=== PATIENT | male | born 1975 ===

== ENCOUNTER 2021-03-08 18:01 | Emergency (ER) | payer SELFPAY ==
[~2021-03-08] VITALS: Ht 185.4 cm; Wt 99.8 kg
[2021-03-08 19:05] LABS: BASOPHILS ABSOLUTE AUTO 0.06 K/mm3 (0.00-0.23); BASOPHILS PERCENT AUTO 1 % (0-2); EOSINOPHILS ABSOLUTE AUTO 0.18 K/mm3 (0.00-0.68); EOSINOPHILS PERCENT AUTO 3 % (0-6); Hematocrit 54.8 % (37.0-53.0); Hemoglobin 19.3 g/dL (13.5-17.5); IMMATURE GRAN ABSOLUTE AUTO 0.05 K/mm3 (0.00-0.10); IMMATURE GRAN PERCENT AUTO 1 % (0-1); LYMPHOCYTES ABSOLUTE AUTO 3.18 K/mm3 (0.84-5.20); LYMPHOCYTES PERCENT AUTO 45 % (21-46); MONOCYTES ABSOLUTE AUTO 0.71 K/mm3 (0.16-1.47); MONOCYTES PERCENT AUTO 10 % (4-13); Mean Corpuscular HGB Conc 35.2 g/dL (31.5-36.5); Mean Corpuscular Volume 94 fL (80-100); Mean Platelet Volume 11.9 fL (9.1-12.4); NEUTROPHILS ABSOLUTE AUTO 2.84 K/mm3 (1.96-9.15); NEUTROPHILS PERCENT AUTO 40 % (41-73); NRBC ABSOLUTE 0.02 K/mm3 (0.00-0.02); NRBC Auto 0.3 /100 WBC (0.0-0.2); Platelet Count 237 K/mm3 (150-400); RDW Coefficient Variation 15.7 % (11.7-14.2); Red Blood Cell Count 5.84 M/mm3 (4.30-5.90); White Blood Cell Count 7.02 K/mm3 (4.00-11.30)
[2021-03-08 19:22] LABS: Alanine Aminotransfer (ALT/SGP 101 U/L (12-78); Albumin, Blood 3.3 g/dL (3.4-5.0); Albumin/Globulin Ratio 0.8 (0.8-1.8); Alk Phos 162 U/L (50-136); Anion Gap 6 mmol/L (6-16); Aspartate Aminotrans (AST/SGOT 70 U/L (12-37); Bilirubin, Total 0.6 mg/dL (0.1-1.0); Blood Urea Nitrogen 3 mg/dL (8-24); Bun/Creatinine Ratio 3.9 (12.0-20.0); CO2, Blood 30 mmol/L (21-32); Calcium, Blood 9.2 mg/dL (8.5-10.1); Chloride, Blood 100 mmol/L (98-108); Creatinine, Blood 0.78 mg/dL (0.60-1.20); Globulin, Blood 4.2 g/dL (2.2-4.0); Glomerular Filtration Rate >60 (60-); Glucose, Blood 177 mg/dL (70-99); Potassium, Blood 3.8 mmol/L (3.5-5.5); Sodium, Blood 136 mmol/L (136-145); Total Protein, Blood 7.5 g/dL (6.4-8.2)
[2021-03-08] MEDS ORDERED: ONDA4ODT MM (21:08)
== END 2021-03-08 21:18 | disposition home or self-care (01) ==
LOC: ER 18:01
PROVIDERS: Physician Assistant
DX: U07.1 COVID-19 (principal)
CPT/HCPCS: 80053; 83690; 85025; 96374; 99284; J2405; J7030

== ENCOUNTER 2021-05-07 10:17 | Emergency (ER) | payer SELFPAY ==
[~2021-05-07] VITALS: Ht 185.4 cm; Wt 99.8 kg
[~2021-05-07 10:17] MED LIST: ONDA4ODT MM
[2021-05-07 11:32] LABS: BASOPHILS ABSOLUTE AUTO 0.07 K/mm3 (0.00-0.23); BASOPHILS PERCENT AUTO 1 % (0-2); EOSINOPHILS ABSOLUTE AUTO 0.15 K/mm3 (0.00-0.68); EOSINOPHILS PERCENT AUTO 1 % (0-6); Hemoglobin 19.4 g/dL (13.5-17.5); IMMATURE GRAN ABSOLUTE AUTO 0.03 K/mm3 (0.00-0.10); IMMATURE GRAN PERCENT AUTO 0 % (0-1); LYMPHOCYTES PERCENT AUTO 24 % (21-46); MONOCYTES ABSOLUTE AUTO 0.79 K/mm3 (0.16-1.47); MONOCYTES PERCENT AUTO 7 % (4-13); Mean Corpuscular HGB 32.8 pg (26.0-34.0); Mean Corpuscular HGB Conc 34.6 g/dL (31.5-36.5); Mean Corpuscular Volume 95 fL (80-100); Mean Platelet Volume 10.8 fL (9.1-12.4); NEUTROPHILS ABSOLUTE AUTO 7.93 K/mm3 (1.96-9.15); NEUTROPHILS PERCENT AUTO 67 % (41-73); NRBC ABSOLUTE 0.02 K/mm3 (0.00-0.02); NRBC Auto 0.2 /100 WBC (0.0-0.2); Platelet Count 199 K/mm3 (150-400); RDW Coefficient Variation 14.9 % (11.7-14.2); RDW Standard Deviation 49.2 fL (35.1-46.3); Red Blood Cell Count 5.92 M/mm3 (4.30-5.90); White Blood Cell Count 11.77 K/mm3 (4.00-11.30)
[2021-05-07 12:00] LABS: Alanine Aminotransfer (ALT/SGP 41 U/L (12-78); Albumin/Globulin Ratio 0.7 (0.8-1.8); Alk Phos 206 U/L (50-136); Anion Gap 10 mmol/L (6-16); Aspartate Aminotrans (AST/SGOT 62 U/L (12-37); Bilirubin, Total 2.2 mg/dL (0.1-1.0); Blood Urea Nitrogen 7 mg/dL (8-24); Bun/Creatinine Ratio 7.2 (12.0-20.0); CO2, Blood 30 mmol/L (21-32); Calcium, Blood 9.1 mg/dL (8.5-10.1); Chloride, Blood 91 mmol/L (98-108); Creatinine, Blood 0.97 mg/dL (0.60-1.20); Globulin, Blood 4.1 g/dL (2.2-4.0); Glomerular Filtration Rate >60 (60-); Glucose, Blood 136 mg/dL (70-99); Potassium, Blood 3.4 mmol/L (3.5-5.5); Sodium, Blood 131 mmol/L (136-145); Total Protein, Blood 7.1 g/dL (6.4-8.2)
[2021-05-07 13:04] LABS: International Normalized Ratio 1.19; Prothrombin Time Results 12.4 Sec (9.7-11.5)
[2021-05-07] MEDS ORDERED: ONDA4ODT MM (14:18)
[2021-05-07] MEDS ORDERED: ALMACONE SUSPE355 ML PO (14:18)
[2021-05-07] MEDS ORDERED: OMEP20ER PO (14:18)
== END 2021-05-07 14:29 | disposition home or self-care (01) ==
LOC: ER 10:17
PROVIDERS: Physician Assistant; Student in an Organized Health Care Education/Training Program
DX: E87.6 Hypokalemia (principal); K29.20 Alcoholic gastritis without bleeding; F10.10 Alcohol abuse, uncomplicated; F17.210 Nicotine dependence, cigarettes, uncomplicated
CPT/HCPCS: 36415; 71045; 80053; 83690; 83735; 84484; 85025; 85610; 85730; 93005; 93010; 96374; 96375; 99284-25; A9270; C9113; J2765; J7120

== ENCOUNTER 2021-06-09 11:08 | Emergency (ER) | payer SELFPAY ==
[~2021-06-09] VITALS: Ht 185.4 cm; Wt 95.2 kg
[~2021-06-09 11:08] MED LIST changes: +ALMACONE SUSPE355 ML PO; +OMEP20ER PO
[2021-06-09 11:43] LABS: BASOPHILS ABSOLUTE AUTO 0.11 K/mm3 (0.00-0.23); BASOPHILS PERCENT AUTO 1 % (0-2); EOSINOPHILS ABSOLUTE AUTO 0.12 K/mm3 (0.00-0.68); EOSINOPHILS PERCENT AUTO 1 % (0-6); Hemoglobin 20.1 g/dL (13.5-17.5); IMMATURE GRAN ABSOLUTE AUTO 0.02 K/mm3 (0.00-0.10); IMMATURE GRAN PERCENT AUTO 0 % (0-1); LYMPHOCYTES ABSOLUTE AUTO 3.51 K/mm3 (0.84-5.20); LYMPHOCYTES PERCENT AUTO 42 % (21-46); MONOCYTES ABSOLUTE AUTO 0.82 K/mm3 (0.16-1.47); MONOCYTES PERCENT AUTO 10 % (4-13); Mean Corpuscular HGB 33.6 pg (26.0-34.0); Mean Corpuscular HGB Conc 35.1 g/dL (31.5-36.5); Mean Corpuscular Volume 96 fL (80-100); Mean Platelet Volume 10.9 fL (9.1-12.4); NEUTROPHILS ABSOLUTE AUTO 3.85 K/mm3 (1.96-9.15); NEUTROPHILS PERCENT AUTO 46 % (41-73); Platelet Count 241 K/mm3 (150-400); RDW Standard Deviation 54.2 fL (35.1-46.3); Red Blood Cell Count 5.98 M/mm3 (4.30-5.90); White Blood Cell Count 8.43 K/mm3 (4.00-11.30)
[2021-06-09 11:49] LABS: Hematocrit 57.2 % (37.0-53.0)
[2021-06-09 12:14] LABS: Alanine Aminotransfer (ALT/SGP 60 U/L (12-78); Albumin, Blood 3.4 g/dL (3.4-5.0); Albumin/Globulin Ratio 0.9 (0.8-1.8); Alk Phos 173 U/L (50-136); Anion Gap 11 mmol/L (6-16); Aspartate Aminotrans (AST/SGOT 50 U/L (12-37); Blood Urea Nitrogen 3 mg/dL (8-24); Bun/Creatinine Ratio 3.9 (12.0-20.0); CO2, Blood 28 mmol/L (21-32); Chloride, Blood 96 mmol/L (98-108); Creatinine, Blood 0.77 mg/dL (0.60-1.20); Globulin, Blood 3.7 g/dL (2.2-4.0); Glomerular Filtration Rate >60 (60-); Glucose, Blood 202 mg/dL (70-99); Potassium, Blood 3.3 mmol/L (3.5-5.5); Sodium, Blood 135 mmol/L (136-145); Total Protein, Blood 7.1 g/dL (6.4-8.2)
[2021-06-09 12:46] LABS: Ethanol (Alcohol), Blood, Med 169 mg/dL
[2021-06-09] MEDS ORDERED: CHLO25 PO (13:27)
== END 2021-06-09 13:44 | disposition home or self-care (01) ==
LOC: ER 11:08
PROVIDERS: Emergency Medicine; Physician Assistant
DX: F10.239 Alcohol dependence with withdrawal, unspecified (principal); F17.210 Nicotine dependence, cigarettes, uncomplicated
CPT/HCPCS: 80053; 83690; 84484; 85025; 86850; 86900; 86901; 93005; 93010; 99283-25; G0480; J7030

== ENCOUNTER 2021-09-04 18:03 | Emergency (ER) | payer SELFPAY ==
[~2021-09-04] VITALS: Ht 185.4 cm; Wt 95.2 kg
[~2021-09-04 18:03] MED LIST changes: +CHLO25 PO
[2021-09-04 19:26] LABS: BASOPHILS ABSOLUTE AUTO 0.11 K/mm3 (0.00-0.23); BASOPHILS PERCENT AUTO 1 % (0-2); EOSINOPHILS ABSOLUTE AUTO 0.08 K/mm3 (0.00-0.68); EOSINOPHILS PERCENT AUTO 1 % (0-6); Hemoglobin 20.3 g/dL (13.5-17.5); IMMATURE GRAN ABSOLUTE AUTO 0.05 K/mm3 (0.00-0.10); IMMATURE GRAN PERCENT AUTO 0 % (0-1); LYMPHOCYTES ABSOLUTE AUTO 3.68 K/mm3 (0.84-5.20); LYMPHOCYTES PERCENT AUTO 29 % (21-46); MONOCYTES ABSOLUTE AUTO 1.27 K/mm3 (0.16-1.47); MONOCYTES PERCENT AUTO 10 % (4-13); Mean Corpuscular HGB 32.6 pg (26.0-34.0); Mean Corpuscular HGB Conc 34.9 g/dL (31.5-36.5); Mean Corpuscular Volume 93 fL (80-100); Mean Platelet Volume 11.3 fL (9.1-12.4); NEUTROPHILS ABSOLUTE AUTO 7.53 K/mm3 (1.96-9.15); NEUTROPHILS PERCENT AUTO 59 % (41-73); NRBC ABSOLUTE 0.02 K/mm3 (0.00-0.02); NRBC Auto 0.2 /100 WBC (0.0-0.2); Platelet Count 350 K/mm3 (150-400); RDW Coefficient Variation 17.4 % (11.7-14.2); RDW Standard Deviation 52.8 fL (35.1-46.3); Red Blood Cell Count 6.23 M/mm3 (4.30-5.90); White Blood Cell Count 12.72 K/mm3 (4.00-11.30)
[2021-09-04 19:36] LABS: Hematocrit 58.1 % (37.0-53.0)
[2021-09-04 19:49] LABS: Albumin, Blood 3.5 g/dL (3.4-5.0); Albumin/Globulin Ratio 0.9 (0.8-1.8); Bun/Creatinine Ratio 6.2 (12.0-20.0); Calcium, Blood 9.2 mg/dL (8.5-10.1); Creatinine, Blood 0.8 mg/dL (0.60-1.20); Magnesium, Blood 1.7 mg/dL (1.6-2.4); Potassium, Blood 3.7 mmol/L (3.5-5.5); Total Protein, Blood 7.5 g/dL (6.4-8.2)
[2021-09-04] MEDS ORDERED: ONDA4ODT MM (22:26)
[2021-09-04] MEDS ORDERED: CHLO25 PO (22:26)
== END 2021-09-04 22:44 | disposition home or self-care (01) ==
LOC: ER 18:03
PROVIDERS: Physician Assistant
DX: F10.129 Alcohol abuse with intoxication, unspecified (principal); E86.0 Dehydration; F17.210 Nicotine dependence, cigarettes, uncomplicated; Y90.7 Blood alcohol level of 200-239 mg/100 ml; Z79.899 Other long term (current) drug therapy
CPT/HCPCS: 36415; 80053; 83735; 85025; 96374; 96376; 99283-25; A9270; G0480; J2405; J7030

== ENCOUNTER 2021-12-24 03:51 | Inpatient (IN) | payer OTHER ==
[~2021-12-24] VITALS: Ht 185.4 cm; Wt 116.0 kg
[2021-12-24 05:29] LABS: Albumin, Blood 2.1 g/dL (3.4-5.0); Albumin/Globulin Ratio 0.6 (0.8-1.8); Bilirubin, Total 9.1 mg/dL (0.1-1.0); Bun/Creatinine Ratio 23.7 (12.0-20.0); Calcium, Blood 9.2 mg/dL (8.5-10.1); Creatinine, Blood 0.97 mg/dL (0.60-1.20); Globulin, Blood 3.4 g/dL (2.2-4.0); Potassium, Blood 3.3 mmol/L (3.5-5.5); Total Protein, Blood 5.5 g/dL (6.4-8.2)
[2021-12-24 06:00] LABS: Bicarbonate Venous 36.9 mmol/L (24.0-30.0); PCO2 Venous 43.5 mmHg (38-42); pH Blood Venous 7.54 (7.34-7.37)
[2021-12-24 06:01] LABS: Base Excess Venous 14.8 mmol/L
[2021-12-24 06:01] LABS: BASOPHILS ABSOLUTE AUTO 0.05 K/mm3 (0.00-0.23); BASOPHILS PERCENT AUTO 1 % (0-2); EOSINOPHILS ABSOLUTE AUTO 0.13 K/mm3 (0.00-0.68); EOSINOPHILS PERCENT AUTO 2 % (0-6); Hemoglobin 16.8 g/dL (13.5-17.5); IMMATURE GRAN PERCENT AUTO 1 % (0-1); LYMPHOCYTES ABSOLUTE AUTO 1.66 K/mm3 (0.84-5.20); LYMPHOCYTES PERCENT AUTO 22 % (21-46); MONOCYTES ABSOLUTE AUTO 0.59 K/mm3 (0.16-1.47); MONOCYTES PERCENT AUTO 8 % (4-13); Mean Corpuscular HGB 34.7 pg (26.0-34.0); Mean Corpuscular Volume 93 fL (80-100); NEUTROPHILS ABSOLUTE AUTO 5.05 K/mm3 (1.96-9.15); NEUTROPHILS PERCENT AUTO 67 % (41-73); NRBC ABSOLUTE 0.03 K/mm3 (0.00-0.02); NRBC Auto 0.4 /100 WBC (0.0-0.2); RDW Coefficient Variation 16.1 % (11.7-14.2); RDW Standard Deviation 53.5 fL (35.1-46.3); Red Blood Cell Count 4.84 M/mm3 (4.30-5.90); White Blood Cell Count 7.58 K/mm3 (4.00-11.30)
[2021-12-24 06:11] LABS: Mean Corpuscular HGB Conc 37.3 g/dL (31.5-36.5)
--- NOTE | 2021-12-24 09:00 | NUR ---
ADMIT PT ARRIVED TO ICU ROOM 12 VIA ER BED AT 0845. PT IS AWAKE, AGITATED, AND RESTLESS. PT TRANSFERED TO ICU BED. SBW RESTRAINTS IN PLACE. PT IS CONFUSED AND SPEECH IS SLURRED AND NONSENSICAL. KCL IV INFUSING. VITAL SIGNS STABLE. WILL CONTINUE TO MONITOR.
--- NOTE | 2021-12-24 17:46 | NUR ---
SHIFT SUMMARY PT REMAINS CONFUSED AND WITH PERIODS OF RESTLESSNESS THIS SHIFT. PT IS NOT REDIRECTABLE. PT WITH HALLUCINATIONS AND NONSENSICAL SPEECH. PT WITH SBW RESTRAINTS IN PLACE. PT ATTEMPTS TO SIT UP IN BED AND PULL AT LINES/TUBES. PT MED WITH ATIVAN PRN PER EMAR AND PRECEDEX INFUSING AT 0.5 MCG/KG/HR. NS INFUSING AT 100 ML/HR. PG TO APOLONIA C/D/I. CONDOM CATH IN PLACE WITH DARK YELLOW URINE OUTPUT NOTED. RECTAL TUBE IN PLACE, PT WITH LARGE VOLUME OF BROWN LIQUID STOOL NOTED S/P LACTULOSE ENEMAS. NO FAMILY AT BEDSIDE. VITAL SIGNS STABLE, PT ON 4L O2 NC. WILL CONTINUE TO MONITOR AND REPORT OFF TO ONCOMING RN.
--- NOTE | 2021-12-24 19:13 | NUR ---
assumed care of pt @ 1900 report given by debbi nunes. v/s wnl precidex drip is at.5 pt seems comfortable. will assess ciwa amd medicate as needed. pt is in restraints for safty and agitation.
[2021-12-25 03:56] LABS: Source, Urine Foley catheter
[2021-12-25 03:59] LABS: Blood, Urine 5+ (Neg); Glucose Qualitative, Urine Neg (Neg); Ketones, Urine 3+ (Neg); Leukocyte Esterase, Urine 1+ (Neg); Nitrite, Urine Pos (Neg); Protein, Urine 3+ (Neg); Urobilinogen, Urine 3+ (Normal)
[2021-12-25 04:10] LABS: Appearance, Urine Hazy (Clear); Bilirubin, Urine 3+ (Neg); Color, Urine Amber (P-Yellow)
[2021-12-25 04:11] LABS: Bacteria Few /hpf; Squamous Epithelial Cells Few /hpf (Few)
[2021-12-25 04:26] LABS: Bun/Creatinine Ratio 24.7 (12.0-20.0); Creatinine, Blood 0.81 mg/dL (0.60-1.20)
--- NOTE | 2021-12-25 06:16 | NUR ---
END OF SHIFT SUMMARY PT IN FOR ETOH WITHDRAW PT HAS CONSISTANLY SCORRED 26 ON CIWA. HIS PRECIDEX DRIP IS RUNNING AT .7 AND HAS NEEDED A SIGNIFICANT AMOUNT OF ATIVAN FOR W/D SYMTOMS. PT GOES FROM SOMMULANT TO SHOUTING PROFANITIES. PT WAS AT ONE TIME ABLE TO TELL ME NAME YEAR AND PRESIDENT BUT MOSTLY MUMBLING. PT IS NOT AWARE OF WHERE HES IS AT AND WHY HE IS HERE. V/S HAVE BEEN STABLE WILL CONTIMNUE TO MONITER AND REPPORT TO ONCOMING RN
--- NOTE | 2021-12-25 12:07 | NUR ---
BREEZY HAS BEEN SLEEPING FOR THE MAJORITY OF THE DAY, THE PRECEDEX STARTED AT 0.7MCG/KG THIS SHIFT BUT DECREASED TO 0.5MCG/KG FOR CONTINUED SOMNOLENCE. WHEN HE WOULD AWAKE HE WAS UNABLE TO ANSWER QUESTIONS ABOUT WHERE HE WAS AND WHY HE WAS HERE. HE WOULD GET UPSET AND YELL AND CURSE AND FALL BACK TO SLEEP. HE WAS MEDICATED WITH ATIVAN 2MG FOR INCREASED AGITATION JUST AFTER 1100. HE WAS RE- POSITIONED AND FELL BACK TO SLEEP. ORAL CARE BEING DONE Q2-3 HRS. CATHETER CONTINUES TO RETURN DARK CLAUDETTE, RECTAL TUBE WITH BROWN LIQUID RETURN.
--- NOTE | 2021-12-25 16:49 | NUR ---
PT WAKES UP OCCASIONALLY AND ASKS FOR WATER, HE IS ABLE TO TAKE IN THE STRAW AND SUCK OUT THE WATER. HE IS SATISFIED WITH THIS AND FALLS BACK TO SLEEP. HIS MOTHER HAS CALLED TO CHECK ON HIM.
--- NOTE | 2021-12-25 18:20 | NUR ---
BREEZY HAS BEEN SLEEPING MOST OF THE DAY, HE WILL OCC SHOUT OUT RANDOM WORDS OR PHRASES. WHEN QUESTIONED, THE MAJORITY OF THE TIME HE IS UNABLE TO ANSWER, ONCE TODAY HE WAS ABLE TO SAY HE WAS IN [place] AND THE DATE IS DECEMBER 25, 2021, PRESIDENT CHELSEA. THE OTHER QUESTIONS ARE NOT ANSWERED CORRECTLY, OR HE BECOMES AGITATED. HE CONTINUES ON THE PRECEDEX AT 0.5MCG/KG, NS @ 100ML/HR, LR @ 125ML/HR, GROSS TO GRAVITY DRAINAGE RETURNS YELLOW BILE COLOR, RECTAL TUBE RETURNS LIQUID BROWN. OXYGEN VIA NC @ 4L WITH SATS >90%. SCD'S IN PLACE. CIWA'S HAVE RANGED FROM 10-20. WILL CONTINUE TO MONITOR AND TREAT.
--- NOTE | 2021-12-25 21:30 | NUR ---
ASSUMPTION OF CARE/ASSESSMENT: ASSUMED CARE OF PT AT 1900. PT IS DROUSY BUT AROUSABLE. WHEN WOKEN UP, PT DISPLAYS AGGITATION AND ANGRY TOWARDS RESTRAINTS AND NOT BEING ABLE TO EAT. PT IS REDIRECTABLE AND CONTINUES TO COOPERATE WITH CARE. PT IS A&O X 3; PT CONFUSED ON EVENTS THAT LED HIM HERE AND AT TIMES THINKS HE IS STILL AT [facility]. PT ABLE TO CONVERSE SLOWLY BUT WORDS ARE SLIGHTLY SLURRED. PT FALLS BACK TO SLEEP EASILY AT THIS TIME. PT 1999 CIWA SCORE 9, MEDICATED WITH 2 MG ATIVAN PER EMAR. PT LUNG SOUNDS ARE CLEAR WITH EXPIRATORY WHEEZES NOTED; BREATHS LOOK SHALLOW AND TACHYPNIC NOTED, RR 35-45 AND SPO2 92<. PT WEARING NC @ 4 L. PT HR IN THE 80'S, SBP 100'S, AND MAP 65<. PT ABD MODERATELY DISTENDED WITH SOME PAIN RELATED TO PALPATION; NO C/O OF N/V AT THIS TIME. RECTAL TUBE IN PLACE THAT IS DRAINING TO GRAVITY; LIQUID, LIGHT BROWN OUTPUT. WARM EXTREMITIES WITH PPP X 4. PT TOLERATING PO LIQUIDS AT THIS TIME. WILL CONTINUE TO MONITOR.
[2021-12-26 04:42] LABS: Bun/Creatinine Ratio 21.5 (12.0-20.0); Calcium, Blood 7.7 mg/dL (8.5-10.1); Creatinine, Blood 0.79 mg/dL (0.60-1.20); Magnesium, Blood 1.8 mg/dL (1.6-2.4); Potassium, Blood 3.6 mmol/L (3.5-5.5)
--- NOTE | 2021-12-26 06:37 | NUR ---
SHIFT SUMMARY: NO ACUTE CHANGES THIS SHIFT. PT REMAINS AGGITATED THROUGHOUT THE SHIFT BUT IS REDIRECTABLE AND COOPERATES WIHT CARE. THE PT IS ABLE TO STAY AWAKE MORE DURING ASSESSMENTS. PT TOLERATES LIQUIDS AND DIET TRIALED WITH JELLO AND PT TOLERATED WELL. PT HAD A LOT OF PO INTAKE THIS SHIFT. PT KEEPS VOICING DESIRE TO LEAVE THE HOSPITAL AND GO HOME, BUT NO REAL ATTEMPTS TO GET OUT OF BED WERE MADE. RESTRAINTS WERE TAKEN OFF AFTER MENTATION IMPROVED AND THE PT WAS ABLE TO NOT PULL ON LINES. PT PUT ON CENTRAL MONITORING FOR ADDITIONAL OBSERVATION WHEN RN NOT IN ROOM. PT TOSSED AND TURNED ALL NIGHT; PT ATTEMPTED TO LAY ON STOMACH AND PULLED OUT POWERGLIDE. A PRESSURE DRESSING WAS PUT IN PLACE AND A NEW IV WAS STARTED IN THE LAC. PT RECIEVED A ONE TIME DOSE OF 10 MG ZYPREXA TO CALM PT DURING IV INSERTION. PT HAD GOOD URINE OUTPUT THIS SHIFT; URINE TEA COLORED AND CLOUDY. PT ON NC @ 5 L TO MAINTAING SPO2 92<; PT HAS EXPIRATORY WHEEZES HEARD WITHOUT STETHESCOPE. RECTAL REMAINS IN PLACE AND PATENT; LOTS OF GAS IN BAG. PRECEDEX IS ON SB; PT RECIEVED A TOTAL OF 10 MG OF ATIVAN THROUGHOUT THE SHIFT. WILL CONTINUE TO MONITOR UNTIL ONCOMING RN ARRIVES.
--- NOTE | 2021-12-26 09:32 | NUR ---
BREEZY IS AWAKE AND CONVERSANT, HE IS NOT ORIENTED TO PLACE OR WHY HE IS HERE. HE IS A BIT AGITATED AND IS WANTING TO GO HOME, HE WANTS OUT OF BED AND HE WANTS TO TALK TO HIS FAMILY. HE IS BEING COOPERATIVE IN THAT HE IS NOT PULLING AND TUGGING AT THE LINES/CORDS/TUBES, BUT IS UNABLE TO UNDERSTAND WHY HE IS HERE AND WHAT HE IS HERE FOR. RECTAL TUBE REMOVED WITHOUT INCIDENT, IN TO ROUND ON PATIENT, NO NEW ORDERS. PIV STARTED IN LEFT HAND, PATIENT COOPERA- TIVE WITH THAT. SCD'S IN PLACE. ORAL LIBRIUM GIVEN.
--- NOTE | 2021-12-26 11:56 | NUR ---
BREEZY IS UP TO THE CHAIR BESIDE THE BED, HE IS VERY SHORT OF BREATH, BREATHING AT THE RATE OF HI 20'S. SATS 92% ON 4L. HE TRANSFERRED FAIRLY WELL, DID A "PLOP" INTO THE CHAIR. HE IS ABLE TO FEED HIMSELF AND IS TAKING IN HIS LUNCH TRAY WITHOUT INCIDENT. HE RECALLED THAT THE RECTAL TUBE HAS BEEN REMOVED, ASKED ABOUT THE GROSS CATHETER. DID NOT REMEMBER THAT HE HAD HAD A BED BATH.
--- NOTE | 2021-12-26 12:41 | NUR ---
AFTER LUNCH BREEZY WANTED TO RETURN TO "HIS COUCH". HE TRANSFERRED FAIRLY WELL. HE GETS FRUSTRATED AT PEOPLE HELPING HIM BUT IS UNABLE TO NAVIGATE THE WAY BACK WITHOUT ASSISTANCE. HE CUDDLED IN AND WENT TO SLEEP.
--- NOTE | 2021-12-26 15:26 | NUR ---
Spiritual Care: Nurse request Pt. is awake in bed when I enter the room. After introductions the Pt. began to verbally share his experience. Rapport is established. Pt. verbalized gratitude for the care he is receiving. Pt. verbalized gratitude for the spiritual care visit.
--- NOTE | 2021-12-26 18:52 | NUR ---
BREEZY HAS BEEN MORE ALERT AND COOPERATIVE THIS SHIFT. HE HAS BEEN ADAMANT THAT HE WANTS TO GO HOME, HE UNDERSTANDS THAT HIS THINGS ARE AT [facility], HE ASKED THAT WE CALL AND ASK FOR THEM. EFFORTS MADE TO GET [facility], THEY STATE THAT HIS THINGS WILL BE BROUGHT TO HIM TOMORROW, THAT TOMORROW IS HIS OFFICIAL DISCHARGE DAY FROM [facility], THEY ALSO DO NOT HAVE A RESIDENTIAL SPOT AVAILABLE FOR HIM. HE IS TRYING TO SETTLE IN FOR THE NIGHT. WILL CONTINUE TO MONITOR AND TREAT, REPORTING OFF TO NEXT SHIFT WHEN ABLE.
--- NOTE | 2021-12-27 06:21 | NUR ---
END OF SHIFT REPORT NEURO: PT REMAINED A&OX3-4 THROUGHOUT EVENING. NO COMPLAINTS OF NUMBNESS/TINGLING, VISION CHANGES OR HEADACHE. CONFUSION INCREASED OVERNIGHT, VISUAL HALLUCINATIONS OF FAMILY IN ROOM. REDIRECTABLE BUT VERY IMPULSIVE. WOULD CONSTANTLY REMOVE MEDICAL EQUIPMENT. PULLED OUT IV AT END OF SHIFT. NEURO: A&OX3-4 FOR ENTIRE EVEING. NO COMPLAINTS OF NUMBNESS/TINGLING, HEADACHE OR VISION CHANGES. CONFUSION STEADILY INCREASED THROUGHOUT EVENING, INTERMITTENT VISUAL HALLUCINATIONS PRESENT. PSYCHOSOCIAL: REDIRECTABLE BUT VERY IMPULSIVE. CONTINUALLY REMOVING MEDICAL EQUIPMENT AND PULLED OUT AN IV. 125 MG LIBRIUM AND 5 MG ATIVAN GIVEN OVERNIGHT CARDIAC: NO COMPLAINTS OF CHEST PAIN. NSR. NORMOTENSIVE. RESPIRATORY: RA TO 3L NC. CLEAR BREATH SOUNDS INTERMITTENT EXPIRATORY WHEEZING APPRECIATED. GI/: GROSS CATH IN PLACE. PUTTING OUT ADEQUATE TEA COLORED URINE. MULTIPLE SMALL FORMED AND MUCOUS LIKE STOOLS. MUSCULOSKELETAL: FULL STRENGTH AND SENSATION IN ALL FOUR EXTREMITIES. UNSTABEL GAIT, REQUIRES ONES ASSIST WITH WALKER TO BEDSIDE COMMODE. INTEGUMENTARY: FLUSHED, INTACT. LINES: NS @ 100ML/HR
--- NOTE | 2021-12-27 19:03 | NUR ---
summary neuro: sedated with 0.6 precedex gtt, pt otherwise oriented x2-3 Lungs; wnl cardiac: wnl gi: loose bm gu: [facility] in place CIWA as needed
--- NOTE | 2021-12-27 19:18 | NUR ---
ASSUME CARE PT A&OX3, NOT ORIENTED TO PLACE. AWAKENS TO VERBAL STIMULI AND FOLLOWS COMMANDS. JOSE LUIS VEST AND WRIST RESTRAINTS IN PLACE. SKIN INTACT. GROSS CATH NOTED. PRECEDEX AT 0.6 MCG/KG/HR. NS AT 100.
[2021-12-28 04:05] LABS: Albumin, Blood 1.7 g/dL (3.4-5.0); Albumin/Globulin Ratio 0.5 (0.8-1.8); Bilirubin, Direct 10.7 mg/dL (0.0-0.3); Bilirubin, Indirect 2.3 mg/dL (0.1-0.7); Creatinine, Blood 0.62 mg/dL (0.60-1.20); Globulin, Blood 3.3 g/dL (2.2-4.0); Magnesium, Blood 1.9 mg/dL (1.6-2.4); Potassium, Blood 3.9 mmol/L (3.5-5.5)
--- NOTE | 2021-12-28 05:58 | NUR ---
END OF SHIFT SUMMARY PRECEDEX 0.6 MCG/KG/HR. NS 100 ML/HR NEURO: AWAKENS TO VERBAL STIMULI AND ATTENDS TO QUESTIONING, FOLLOWS COMMANDS. INTERMITTENT IRRITABILITY AND ANXIETY. FULL STRENGTH AND SENSATION IN ALL FOUR EXTREMITIES. NO COMPLAINTS OF HEADACHE, VISION CHANGES OR NUMBNESS/TINGLING. CARDIAC: NSR. NORMOTENSIVE. STRONG PULSES. RESPIRATORY: TACHYPNEIC. DYSPNEA AT REST. EXPIRATORY WHEEZES APPRECIATED BILATERALLY. COARSE BILATERAL LOWER LOBES. GI: NO BOWEL MOVEMENT OVERNIGHT. HYPERACTIVE BOWEL SOUNDS. ABDOMEN DISTENDED AND FIRM, NONTENDER. : DARK TEA COLORED URINE. OUTPUT 30-60 ML/HR. GROSS IN PLACE. MUSCULOSKELETAL: FULL STRENGTH AND SENSATION ALL FOUR LIMBS. JOSE LUIS VEST AND SOFT WRIST RESTRAINTS BILATERALLY. INTEGUMENTARY: DIAPHORETIC. LIPOMA TO RIGHT PARIETAL REGION OF HEAD.
--- NOTE | 2021-12-28 08:00 | NUR ---
PT VERY CONFUSED AND AGITATED. PT YELLING FOR "WATER!" PT ASKING WHY HE IS BEING HELD HERE AGAINST HIS WILL AND DEMANDING A "ROADING ENGINEER." PT ORIENTED TO SELF. CIWA 24-MED WITH LIBRIUM 50 MG PO X 1-SEE EMAR. PRECEDEX DRIP CONTINUES @ 0.6 MCG/KG/MIN. ECG SHOWS SR WITH RATE 70-90'S. GENERALIZED EDEMA NOTED. DP/PT PULSES PALPABLE. LUNGS TIGHT WITH SCATTERED WHEEZES THROUGH OUT. SATS>90% ON 4 LITERS NASAL CANULA. RESP 28-36. RESPIRATIONS AUDIBLY MOIST. OCCASIONAL, MOIST, NONPRODUCTIVE COUGH. ASSISTED PT WITH BREAKFAST TRAY-ASPIRATION PRECAUTIONS IN PLACE. ABDOMEN VERY DISTENDED AND FIRM WITH BT'S X 4. PT HAD SMALL, SMEAR OF BLACK STOOL. GROSS WITH SMALL AMOUNT OF TEA COLORED URINE. SKIN IS MOIST WITH BEADS OF SWEAT TO FOREHEAD. SKIN AND SCLERA JAUNDICED. AFTER BREAKFAST, ASSISTED PT TO TURN TO HIS LEFT SIDE.
--- NOTE | 2021-12-28 10:00 | NUR ---
PT AWAKENED AND STATES "CAN YOU COME HERE AND PUT THE MEAT ON THE GRILL?" UNABLE TO RE-ORIENT PT HALLUCINATING. CIWA 20-PRECEDEX DRIP CONTINUES @ 0.6 MCG/KG/MIN.
[2021-12-28 11:49] LABS: Base Excess Venous 1.7 mmol/L; Bicarbonate Venous 25.6 mmol/L (24.0-30.0); PCO2 Venous 41.9 mmHg (38-42); pH Blood Venous 7.41 (7.34-7.37)
--- NOTE | 2021-12-28 12:00 | NUR ---
CIWA 13. PT LESS AGITATED AND CONFUSED AT THIS TIME. PT ABLE TO TAKE LIBRIUM WITH SIPS OF WATER WITHOUT DIFFICULTY. PRECEDEX CONTINUES @ 0.6 MCG/KG/MIN. LUNGS REMAIN TIGHT AND WHEEZY-DR. CALI AWARE AND ORDERS GIVEN FOR VBG, CH1V, BNP, PROCALCITONIN, AND UDN. VS WDL.
--- NOTE | 2021-12-28 15:30 | NUR ---
CIWA 8 ON PRECEDEX @ 0.4 MCG/KG/MIN. PT HAS BEEN MEDICATED X 2 WITH LIBRIUM 50 MG PO-SEE EMAR. ECG CONTINUES SR WITH RATE 70'S. SBP 110-120'S. LUNGS CONTINUE TO BE TIGHT AND WHEEZY THROUGH OUT. RR 22-28. SATS>90% ON 4 LITERS NASAL CANULA. PT TOLERATING PO FLUIDS WELL-CONTINUE ASPIRATION PRECAUTIONS. GROSS CONTINUES TO DRAIN DARK, TEA COLORED URINE. NEW EXTENDED DWELL CATHETER PLACED AND BC X 1 FROM LINE AND 1 PERIPHERAL SENT. PT VERY COOPERATIVE WITH PLACEMENT OF EXTENDED DWELL CATHETER AND VENIPUNCTURE.
--- NOTE | 2021-12-28 18:40 | NUR ---
PT LESS CONFUSED AND AGITATED THIS EVENING. CIWA 8-MED WITH LIBRIUM 50 MG PO-SEE EMAR. PT ABLE TO FEED HIMSELF DINNER, FOLLOWING COMMANDS, AND ACTIVITY IS SOMEWHAT NORMAL. PT ATE ONLY 20% OF DINNER TRAY. PT REPORTS ABDOMINAL DISCOMFORT, BUT IS UNABLE TO REPORT SPECIFIC LOCATION. REPOSITIONED TO LEFT SIDE.
--- NOTE | 2021-12-28 19:15 | NUR ---
ASSUME CARE PT A&OX4. CIWA<8. PRECEDEX AT O.4 MCG/KG/HR. NS AT 100 ML/HR. TACHYPNEIC AND EXPIRATORY WHEEZING NOTED. NO CHEST PAIN, NUMBNESS/TINGLING, VISION CHANGES OR GENERALIZED PAIN. ABDOMEN FIRMER TODAY THAN PREVIOUSLY NOTED AND SEVERE SCROTAL EDEMA NOTED.
--- NOTE | 2021-12-29 06:19 | NUR ---
END OF SHIFT SUMMARY PRECEDEX: 0.2 MCG/KG/HR. NS: 100 ML/HR NEURO: PATIENT REMAINED A&OX3-4 OVERNIGHT. CIWA <8 ALL EVENING. MAKING NEEDS KNOWN. NO COMPLAINTS OF NUMBNESS/TINGLING, HEADACHE OR VISION CHANGES. RESPIRATORY: COARSE BILATERAL LOWERS AND EXPIRATORY WHEEZING APPRECIATED. 2L NC. DYSPNEIC WITH EXERTION. CARDIAC: NSR. NORMOTENSIVE. NO COMPLAINTS OF CHEST PAIN. GI: ABDOMEN DISTENTION FIRMER THAN YESTERDAY. PATIENT COMPLAINING OF TENDERNESS. DOC NOTIFIED AND ULTRASOUND PLANNED FOR TODAY. NO BOWEL MOVEMENT OVERNIGHT. : GROSS IN PLACE. PUTTING OUT ADEQUATE CLEAR, CLAUDETTE COLORED URINE OVERNIGHT. MUSCULOSKELETAL: FULL STRENGTH AND SENSATION IN ALL FOUR EXTREMITIES. UP TO BEDSIDE COMMODE WITH 1 ASSIST. INTEGUMENTARY: BATHED. GENITAL EDEMA NOTED.
--- NOTE | 2021-12-29 07:04 | NUR ---
TOOK OVER CARE OF PT AT 0700, PT ON 0.2 PRECEDEX GTT
[2021-12-29 08:13] LABS: Base Excess Venous 4.8 mmol/L; Bicarbonate Venous 26.9 mmol/L (24.0-30.0); PCO2 Venous 48.1 mmHg (38-42)
[2021-12-29 08:27] LABS: Bun/Creatinine Ratio 8.8 (12.0-20.0); Calcium, Blood 7.9 mg/dL (8.5-10.1); Creatinine, Blood 0.69 mg/dL (0.60-1.20)
[2021-12-29] MEDS ORDERED: LEVOFLOXACIN750 MG PO (14:04)
[2021-12-29] MEDS ORDERED: DAILY-VITE1 EAC1 PO (14:07)
[2021-12-29] MEDS ORDERED: B-1100 M1 PO (14:08)
== END 2021-12-29 15:10 | disposition home or self-care (01) | DRG 441 ==
LOC: ER 03:51 → ICUW 06:09 → ERHOLD 06:09 → ICUW 09:03
PROVIDERS: Emergency Medicine; Internal Medicine; Student in an Organized Health Care Education/Training Program; ADMIT Family Medicine
DX: K76.82 Hepatic encephalopathy (principal); G92.8 Other toxic encephalopathy; J18.9 Pneumonia, unspecified organism; E87.1 Hypo-osmolality and hyponatremia; R44.3 Hallucinations, unspecified; E87.3 Alkalosis; F10.239 Alcohol dependence with withdrawal, unspecified; N39.0 Urinary tract infection, site not specified; R14.0 Abdominal distension (gaseous); R79.89 Other specified abnormal findings of blood chemistry; R94.5 Abnormal results of liver function studies; B95.8 Unspecified staphylococcus as the cause of diseases classified elsewhere; E87.6 Hypokalemia; R25.1 Tremor, unspecified; K70.10 Alcoholic hepatitis without ascites; K21.9 Gastro-esophageal reflux disease without esophagitis; R94.31 Abnormal electrocardiogram [ECG] [EKG]; Z87.19 Personal history of other diseases of the digestive system
CPT/HCPCS: 36415; 51702; 70450; 71045; 76705; 80048; 80053; 80076; 81001; 82140; 82607; 82746; 82803; 83735; 83880; 84145; 85025; 87077; 87086; 87186; 93005; 93010; 93306; 94640; 94664; 94762; 96374; 96375; 99285-25; A9270; C1751; C9113; J1630; J1940; J1956; J2060; J3411; J3475; J3480; J7030; J7050; J7120; P9047

== ENCOUNTER 2022-03-22 07:17 | Emergency (ER) | payer OTHER ==
[~2022-03-22] VITALS: Ht 182.9 cm; Wt 86.2 kg
[~2022-03-22 07:17] MED LIST changes: +B-1100 M1 PO; +DAILY-VITE1 EAC1 PO; +LEVOFLOXACIN750 MG PO
[2022-03-22 09:00] LABS: BASOPHILS ABSOLUTE AUTO 0.12 K/mm3 (0.00-0.23); BASOPHILS PERCENT AUTO 1 % (0-2); EOSINOPHILS ABSOLUTE AUTO 0.09 K/mm3 (0.00-0.68); EOSINOPHILS PERCENT AUTO 1 % (0-6); Hematocrit 52.9 % (37.0-53.0); Hemoglobin 18.5 g/dL (13.5-17.5); IMMATURE GRAN ABSOLUTE AUTO 0.06 K/mm3 (0.00-0.10); IMMATURE GRAN PERCENT AUTO 1 % (0-1); LYMPHOCYTES ABSOLUTE AUTO 2.65 K/mm3 (0.84-5.20); LYMPHOCYTES PERCENT AUTO 20 % (21-46); MONOCYTES ABSOLUTE AUTO 0.82 K/mm3 (0.16-1.47); MONOCYTES PERCENT AUTO 6 % (4-13); Mean Corpuscular HGB 29.8 pg (26.0-34.0); Mean Corpuscular Volume 85 fL (80-100); Mean Platelet Volume 11.7 fL (9.1-12.4); NEUTROPHILS ABSOLUTE AUTO 9.59 K/mm3 (1.96-9.15); NEUTROPHILS PERCENT AUTO 72 % (41-73); Platelet Count 251 K/mm3 (150-400); RDW Coefficient Variation 12.6 % (11.7-14.2); White Blood Cell Count 13.33 K/mm3 (4.00-11.30)
[2022-03-22 09:11] LABS: Albumin, Blood 3.5 g/dL (3.4-5.0); Albumin/Globulin Ratio 0.9 (0.8-1.8); Bilirubin, Total 0.8 mg/dL (0.1-1.0); Bun/Creatinine Ratio 9.8 (12.0-20.0); Calcium, Blood 9.7 mg/dL (8.5-10.1); Creatinine, Blood 0.72 mg/dL (0.60-1.20); Globulin, Blood 3.7 g/dL (2.2-4.0); Potassium, Blood 3.4 mmol/L (3.5-5.5); Total Protein, Blood 7.2 g/dL (6.4-8.2)
== END 2022-03-22 10:39 | disposition home or self-care (01) ==
LOC: ER 07:17
PROVIDERS: Family Medicine
DX: F10.139 Alcohol abuse with withdrawal, unspecified (principal); F17.210 Nicotine dependence, cigarettes, uncomplicated; Z79.899 Other long term (current) drug therapy
CPT/HCPCS: 80053; 82140; 83690; 85025; A9270; G0480; J2550; J7030

== ENCOUNTER 2022-05-31 07:16 | Emergency (ER) | payer OTHER ==
[~2022-05-31] VITALS: Ht 185.4 cm; Wt 83.9 kg
[2022-05-31 08:21] LABS: BASOPHILS ABSOLUTE AUTO 0.06 K/mm3 (0.00-0.23); BASOPHILS PERCENT AUTO 1 % (0-2); EOSINOPHILS ABSOLUTE AUTO 0.09 K/mm3 (0.00-0.68); EOSINOPHILS PERCENT AUTO 1 % (0-6); Hematocrit 44.5 % (37.0-53.0); Hemoglobin 15.8 g/dL (13.5-17.5); IMMATURE GRAN ABSOLUTE AUTO 0.06 K/mm3 (0.00-0.10); IMMATURE GRAN PERCENT AUTO 1 % (0-1); LYMPHOCYTES ABSOLUTE AUTO 1.77 K/mm3 (0.84-5.20); LYMPHOCYTES PERCENT AUTO 20 % (21-46); MONOCYTES ABSOLUTE AUTO 0.64 K/mm3 (0.16-1.47); MONOCYTES PERCENT AUTO 7 % (4-13); Mean Corpuscular HGB 31.4 pg (26.0-34.0); Mean Corpuscular HGB Conc 35.5 g/dL (31.5-36.5); Mean Corpuscular Volume 89 fL (80-100); Mean Platelet Volume 10.2 fL (9.1-12.4); NEUTROPHILS ABSOLUTE AUTO 6.38 K/mm3 (1.96-9.15); NEUTROPHILS PERCENT AUTO 71 % (41-73); Platelet Count 175 K/mm3 (150-400); RDW Coefficient Variation 17.8 % (11.7-14.2); RDW Standard Deviation 56.8 fL (35.1-46.3); Red Blood Cell Count 5.03 M/mm3 (4.30-5.90)
[2022-05-31 08:37] LABS: Albumin, Blood 3.3 g/dL (3.4-5.0); Albumin/Globulin Ratio 0.9 (0.8-1.8); Bilirubin, Total 1.4 mg/dL (0.1-1.0); Bun/Creatinine Ratio 20.1 (12.0-20.0); Calcium, Blood 8.6 mg/dL (8.5-10.1); Creatinine, Blood 0.65 mg/dL (0.60-1.20); Globulin, Blood 3.8 g/dL (2.2-4.0); Magnesium, Blood 1.7 mg/dL (1.6-2.4); Potassium, Blood 3.7 mmol/L (3.5-5.5); Total Protein, Blood 7.1 g/dL (6.4-8.2)
[2022-05-31] MEDS ORDERED: CHLO25 PO (10:32)
== END 2022-05-31 10:44 | disposition home or self-care (01) ==
LOC: ER 07:16
PROVIDERS: Student in an Organized Health Care Education/Training Program
DX: F10.10 Alcohol abuse, uncomplicated (principal); R11.2 Nausea with vomiting, unspecified; R74.01 Elevation of levels of liver transaminase levels; F17.210 Nicotine dependence, cigarettes, uncomplicated; Z79.899 Other long term (current) drug therapy
CPT/HCPCS: 36415; 80053; 83735; 85025; 93005; 93010; 96361; 96374; 99284-25; A9270; J2405; J7030

== ENCOUNTER 2022-10-10 08:11 | Inpatient (IN) | payer OTHER ==
[2022-10-10] VITALS (27 sets, daily range): BP systolic 99–140; BP diastolic 73–109
[~2022-10-10] VITALS: Ht 180.3 cm; Wt 88.5 kg
[2022-10-10 09:34] LABS: Albumin, Blood 2.7 g/dL (3.4-5.0); Albumin/Globulin Ratio 0.8 (0.8-1.8); Bilirubin, Total 2.9 mg/dL (0.1-1.0); Bun/Creatinine Ratio 15.3 (12.0-20.0); Calcium, Blood 9.3 mg/dL (8.5-10.1); Creatinine, Blood 0.72 mg/dL (0.60-1.20); Globulin, Blood 3.4 g/dL (2.2-4.0); Potassium, Blood 3.6 mmol/L (3.5-5.5); Total Protein, Blood 6.1 g/dL (6.4-8.2)
[2022-10-10 11:32] LABS: BASOPHILS ABSOLUTE AUTO 0.03 K/mm3 (0.00-0.23); BASOPHILS PERCENT AUTO 1 % (0-2); EOSINOPHILS PERCENT AUTO 2 % (0-6); Hemoglobin 11.7 g/dL (13.5-17.5); IMMATURE GRAN ABSOLUTE AUTO 0.03 K/mm3 (0.00-0.10); IMMATURE GRAN PERCENT AUTO 1 % (0-1); LYMPHOCYTES ABSOLUTE AUTO 1.08 K/mm3 (0.84-5.20); LYMPHOCYTES PERCENT AUTO 22 % (21-46); MONOCYTES ABSOLUTE AUTO 0.44 K/mm3 (0.16-1.47); MONOCYTES PERCENT AUTO 9 % (4-13); Mean Corpuscular HGB 33.6 pg (26.0-34.0); Mean Corpuscular HGB Conc 35.5 g/dL (31.5-36.5); Mean Corpuscular Volume 95 fL (80-100); NEUTROPHILS ABSOLUTE AUTO 3.29 K/mm3 (1.96-9.15); NEUTROPHILS PERCENT AUTO 66 % (41-73); RDW Coefficient Variation 15.1 % (11.7-14.2); RDW Standard Deviation 52.6 fL (35.1-46.3); Red Blood Cell Count 3.48 M/mm3 (4.30-5.90); White Blood Cell Count 4.97 K/mm3 (4.00-11.30)
[2022-10-10 11:44] LABS: International Normalized Ratio 1.12; Prothrombin Time Results 11.7 Sec (9.7-11.5)
--- NOTE | 2022-10-10 12:15 | NUR ---
ASSUMED CARE PATIENT ARRIVED TO ICU BY WHEELCHAIR WITH ED NURSING STAFF AND DIE STAMPER. BLUE SCRUBS WERE RIPPED AND PATIENT WAS CHANGED INTO A PATIENT GOWN. NO FAMILY AT BEDSIDE. MINIMAL BELONGINGS PLACED IN CUPBOARD IN PATIENT ROOM. NEW IV STARTED. REPORT RECEIVED FROM MANUEL FERRELL.
--- NOTE | 2022-10-10 16:16 | NUR ---
UPDATE ATTEMPTED TO COMPLETED CIWA ON PATIENT DURING BRIEF EPISODE OF ALERTNESS. PATIENT WAS LYING IN BED MUMBLING INCOHERENTLY. OPENED EYES FOR BRIEF MOMENT. NODDED HEAD "YES" TO NAUSEA AND HEADACHE, THEN FELL BACK ASLEEP BEFORE COMPLETION OF CIWA ASSESSMENT AND NEURO REASSESSMENT. LUGN SOUNDS REMAIN CLEAR AND ABD REMAINS DISTENDED AND FIRM TO PALPATION. NO URINE OUTPUT OR BM THIS SHIFT. VSS STABLE.
--- NOTE | 2022-10-10 17:10 | NUR ---
UPDATE PATIENT IS ALERT AND HAD BM. CIWA SCORE 19 AND ATIVAN 2MG IV ADMINISTERED PER CIWA ORDERS. PATIENT STOPPED ANSWERING QUESTIONS AFTER CIWA QUESTIONS, BUT WOULD NOD HEAD YES/NO. UNABLE TO COMPLETE ADMIT HISTORY AT THIS TIME. PATIENT'S MOM DEMETRIUS UPDATED AND PATIENT'S GIRLFRIEND SAIRA AT BEDSIDE.
--- NOTE | 2022-10-10 17:56 | NUR ---
SHIFT SUMMARY PATIENT SLEPT MOST OF SHIFT. WOKE ONCE TO USE BEDPAN AND ANSWER CIWA QUESTIONS, THEN FELL BACK ASLEEP. ONE BM THIS SHIFT, NO URINE OUTPUT. ATIVAN 2MG IV GIVEN ONCE FOR CIWA 19. PATIENT ASLEEP FOR REASSESSMENT. NO OTHER CHANGES THIS SHIFT.
--- NOTE | 2022-10-10 20:56 | NUR ---
ASSUMED CARE PT IS A&O X2-3; REORIENTS EASILY, BUT HAS NO RECOLLECTION OF THE PAST FEW DAYS. BELIEVES THAT HE DROVE HIMSELF W/ HIS DAUGHTER TO [place] AND THAT HE WENT TO [place] W/ THIS RN. DENIES CP, SOB, OR NAUSEA. TREATING PER ORDER/CIWA. PT HAS A "LUMP" ON THE RIGHT SIDE OF HEAD THAT HE STATES HE'S HAD HIS WHOLE LIFE. SAYS THE DOCTOR TOLD HIM IT'S EXCESS TISSUE.
--- NOTE | 2022-10-10 22:07 | NUR ---
UPDATE PT CIWA >18 DESPITE LIBRIUM AND ATIVAN TREATMENT. HOSPITALIST CALLED W/ ORDERS FOR PRECEDEX GTT ADJUNCT. PT INITIALLY ATTEMPTING TO GET OUT OF BED, AGITATED, AND HALLUCINATING. AT TIME OF THIS NOTE PT IS RESTING QUIETLY. PRECEDEX TITRATING (SEE FLOWSHEET).
[2022-10-11] VITALS (15 sets, daily range): BP systolic 119–140; BP diastolic 92–104
--- NOTE | 2022-10-11 01:00 | NUR ---
UPDATE PT DESATTING INTO HIGH 80'S WHILE ASLEEP. 2L NC APPLIED; MAINTAINING >92% SPO2.
[2022-10-11 05:05] LABS: BASOPHILS ABSOLUTE AUTO 0.02 K/mm3 (0.00-0.23); BASOPHILS PERCENT AUTO 1 % (0-2); EOSINOPHILS ABSOLUTE AUTO 0.11 K/mm3 (0.00-0.68); EOSINOPHILS PERCENT AUTO 3 % (0-6); Hematocrit 32.4 % (37.0-53.0); Hemoglobin 11.2 g/dL (13.5-17.5); IMMATURE GRAN ABSOLUTE AUTO 0.05 K/mm3 (0.00-0.10); IMMATURE GRAN PERCENT AUTO 2 % (0-1); LYMPHOCYTES ABSOLUTE AUTO 0.91 K/mm3 (0.84-5.20); LYMPHOCYTES PERCENT AUTO 27 % (21-46); MONOCYTES ABSOLUTE AUTO 0.43 K/mm3 (0.16-1.47); MONOCYTES PERCENT AUTO 13 % (4-13); Mean Corpuscular HGB 33.1 pg (26.0-34.0); Mean Corpuscular HGB Conc 34.6 g/dL (31.5-36.5); Mean Corpuscular Volume 96 fL (80-100); NEUTROPHILS ABSOLUTE AUTO 1.88 K/mm3 (1.96-9.15); NEUTROPHILS PERCENT AUTO 55 % (41-73); RDW Coefficient Variation 15.7 % (11.7-14.2); RDW Standard Deviation 55.4 fL (35.1-46.3); Red Blood Cell Count 3.38 M/mm3 (4.30-5.90)
[2022-10-11 05:17] LABS: Platelet Count 91 K/mm3 (150-400)
[2022-10-11 05:32] LABS: Albumin, Blood 2.3 g/dL (3.4-5.0); Albumin/Globulin Ratio 0.7 (0.8-1.8); Bilirubin, Total 2.7 mg/dL (0.1-1.0); Bun/Creatinine Ratio 11.7 (12.0-20.0); Calcium, Blood 8.4 mg/dL (8.5-10.1); Creatinine, Blood 0.68 mg/dL (0.60-1.20); Globulin, Blood 3.4 g/dL (2.2-4.0); Magnesium, Blood 1.3 mg/dL (1.6-2.4); Phosphorus, Blood 3.2 mg/dL (2.5-4.9); Potassium, Blood 3.5 mmol/L (3.5-5.5); Total Protein, Blood 5.7 g/dL (6.4-8.2)
--- NOTE | 2022-10-11 05:37 | NUR ---
SHIFT SUMMARY PT SLEPT/RESTING QUIETLY FOR MOST OF NIGHT. PRECEDEX TITRATING. SPO2 >92% ON 2L NC; PT IS TACHYPNEIC IN THE 30'S. DR RUDD OBSERVED PT AND ORDERED CHEST XRAY. NO OTHER ACUTE EVENTS TONIGHT. MEDICATING PER CIWA/ORDERS
--- NOTE | 2022-10-11 10:47 | NUR ---
Assumed care of pt at 0700. Report received from Juan JACKSON. Pt resting in bed, even chest rise and fall noted. VSS. Precedex at 0.2 mcg/kg/hr for management of alcohol withdrawal.
--- NOTE | 2022-10-11 10:48 | NUR ---
Dr Butt in to see patient. Plan of care discussed. No new orders at this time. Update given to pt's mother over the phone. Pt's mother states she is in [place] and is unable to visit at this time.
--- NOTE | 2022-10-11 13:00 | NUR ---
This RN entered patient's room during late morning. Opened blinds, but patient asked for them to be closed again as he felt sensitive to the light. Morning meds prepared. Pt became agitated when this RN approached with lovenox injection. Pt raised voice and asked several questions surrouding his circumstances of hospitalization. CIWA measured. Pt was agreeable to taking librium. 100 mg given. This RN answered patient's questions and remained in room for approx 45 minutes, reorienting patient and discussing plan of care. Patient stated he was confused because he remembers being discharged home from [place] and he was on his way to [place] to see his mom and he is not sure how he got here. This RN discussed that patient was brought to emergency department from [place]. Discussed that there may be some mismatching between what patient remembers and what actually happened. Pt is agreeable with this. As patient is reoriented, he begins to recall coming to emergency department- leaving- and interacting with security before coming back in. While this RN was talking to patient, he progressively became more lucid, cooperative. Patient even went into detail of specific dosages of gabapentin he has taken previously (which matched dosage in medication claim history) as well as discussing his understanding of the pathophysiology of alcohol addiction. At this point, this RN stopped precedex and placed call to Dr Butt to notify of change in patient's condition and to assess continued need for 2 MD hold and direct supervision with 1:1 sitter. Provider in to see patient immediately, discontinued 2 MD hold, and stated that pt can potentially discharge home today.
--- NOTE | 2022-10-11 15:35 | NUR ---
Patient's s/o, Kiana, in to see patient. She brought him lunch. She was in for a brief period of time as she was on her lunch break from work. She plans to come back around 4:30. Notified that pt may discharge home today, she verbalizes understanding. Patient was ambulated from east ICU to west ICU and then to shower room. He showered independently and then walked back to his room in ICU 2. Steady gait. He stood to brush his teeth and comb his hair. He is currently laying in bed and watching TV. Since precedex stopped, pt remains pleasant and cooperative with care, calm. Nicotine patch came off when he showered. He requested nicotine gum. Dr Butt notified and new orders given.
[2022-10-11] MEDS ORDERED: CHLO25 PO (17:06)
[2022-10-11] MEDS ORDERED: Hair, Skin & N1 EACH PO (17:06)
[2022-10-11] MEDS ORDERED: OMEP20ER PO (17:07)
--- NOTE | 2022-10-11 17:30 | NUR ---
Discharged from ICU 2 at 1727 accompanied by s/o Kiana. Discharge education given to pt and Kiana. Written prescription provided. Ambulated out of hospital. Medications sent with patient.
== END 2022-10-11 17:28 | disposition home or self-care (01) | DRG 896 ==
LOC: ER 08:11 → ICUE 11:04
PROVIDERS: Emergency Medicine; ADMIT Internal Medicine
PROC: HZ2ZZZZ Detoxification Services for Substance Abuse Treatment (ICD-10-PCS; principal; 2022-10-11)
DX: F10.231 Alcohol dependence with withdrawal delirium (principal); G92.8 Other toxic encephalopathy; D61.818 Other pancytopenia; F17.210 Nicotine dependence, cigarettes, uncomplicated; K21.9 Gastro-esophageal reflux disease without esophagitis; D64.9 Anemia, unspecified; K70.10 Alcoholic hepatitis without ascites; E80.6 Other disorders of bilirubin metabolism; E83.42 Hypomagnesemia; Z87.19 Personal history of other diseases of the digestive system; Z79.899 Other long term (current) drug therapy
CPT/HCPCS: 36415; 71045; 80053; 82947; 83735; 84100; 85025; 85610; 96365; 96375; 99285-25; A9270; J1630; J1650; J2060; J3411; J3475; J7030; J7050

== ENCOUNTER 2022-11-02 11:29 | Emergency (ER) | payer OTHER ==
[~2022-11-02] VITALS: Ht 185.4 cm; Wt 86.2 kg
[~2022-11-02 11:29] MED LIST changes: +Hair, Skin & N1 EACH PO
[2022-11-02] MEDS ORDERED: GABAPENTIN600 MG PO (11:40)
[2022-11-02 11:52] LABS: BASOPHILS PERCENT AUTO 1 % (0-2); EOSINOPHILS ABSOLUTE AUTO 0.08 K/mm3 (0.00-0.68); EOSINOPHILS PERCENT AUTO 1 % (0-6); Hematocrit 38.4 % (37.0-53.0); Hemoglobin 13.4 g/dL (13.5-17.5); IMMATURE GRAN ABSOLUTE AUTO 0.04 K/mm3 (0.00-0.10); IMMATURE GRAN PERCENT AUTO 0 % (0-1); LYMPHOCYTES ABSOLUTE AUTO 2.14 K/mm3 (0.84-5.20); LYMPHOCYTES PERCENT AUTO 18 % (21-46); MONOCYTES ABSOLUTE AUTO 0.75 K/mm3 (0.16-1.47); MONOCYTES PERCENT AUTO 6 % (4-13); Mean Corpuscular HGB 33.4 pg (26.0-34.0); Mean Corpuscular HGB Conc 34.9 g/dL (31.5-36.5); Mean Corpuscular Volume 96 fL (80-100); Mean Platelet Volume 12.2 fL (9.1-12.4); NEUTROPHILS ABSOLUTE AUTO 8.82 K/mm3 (1.96-9.15); NEUTROPHILS PERCENT AUTO 74 % (41-73); Platelet Count 185 K/mm3 (150-400); RDW Standard Deviation 49.5 fL (35.1-46.3); Red Blood Cell Count 4.01 M/mm3 (4.30-5.90); White Blood Cell Count 11.93 K/mm3 (4.00-11.30)
[2022-11-02 12:06] LABS: Alanine Aminotransfer (ALT/SGP 73 U/L (12-78); Albumin/Globulin Ratio 0.7 (0.8-1.8); Alk Phos 453 U/L (50-136); Anion Gap 9 mmol/L (6-16); Aspartate Aminotrans (AST/SGOT 138 U/L (12-37); Bilirubin, Total 1.4 mg/dL (0.1-1.0); Blood Urea Nitrogen 8 mg/dL (8-24); Bun/Creatinine Ratio 12.6 (12.0-20.0); CO2, Blood 28 mmol/L (21-32); Calcium, Blood 8.4 mg/dL (8.5-10.1); Chloride, Blood 96 mmol/L (98-108); Creatinine, Blood 0.64 mg/dL (0.60-1.20); Ethanol (Alcohol), Blood, Med <3 mg/dL; Globulin, Blood 4.3 g/dL (2.2-4.0); Glomerular Filtration Rate 118 (60-); Glucose, Blood 126 mg/dL (70-99); Potassium, Blood 3.3 mmol/L (3.5-5.5); Sodium, Blood 133 mmol/L (136-145); Total Protein, Blood 7.3 g/dL (6.4-8.2)
[2022-11-02] MEDS ORDERED: CHLO25 PO (15:14)
[2022-11-02 15:30] VITALS: BP 126/88
== END 2022-11-02 15:30 | disposition home or self-care (01) ==
LOC: ER 11:29
PROVIDERS: Student in an Organized Health Care Education/Training Program
DX: F10.139 Alcohol abuse with withdrawal, unspecified (principal); E87.6 Hypokalemia; E83.42 Hypomagnesemia; F17.210 Nicotine dependence, cigarettes, uncomplicated; Y90.0 Blood alcohol level of less than 20 mg/100 ml
CPT/HCPCS: 80053; 83735; 84484; 85025; 93005; 93010; 96361; 96365; 96375; 96376; 99285-25; A9270; G0480; J2060; J3475; J7030

== ENCOUNTER 2022-12-27 12:26 | Emergency (ER) | payer OTHER ==
[~2022-12-27] VITALS: Ht 185.4 cm; Wt 86.2 kg
[~2022-12-27 12:26] MED LIST changes: +GABAPENTIN600 MG PO
[2022-12-27 13:54] LABS: Albumin, Blood 3.1 g/dL (3.4-5.0); Albumin/Globulin Ratio 0.9 (0.8-1.8); BASOPHILS ABSOLUTE AUTO 0.11 K/mm3 (0.00-0.23); BASOPHILS PERCENT AUTO 2 % (0-2); Bilirubin, Total 0.8 mg/dL (0.1-1.0); Bun/Creatinine Ratio 14.2 (12.0-20.0); Calcium, Blood 7.8 mg/dL (8.5-10.1); Creatinine, Blood 0.64 mg/dL (0.60-1.20); EOSINOPHILS ABSOLUTE AUTO 0.08 K/mm3 (0.00-0.68); EOSINOPHILS PERCENT AUTO 1 % (0-6); Globulin, Blood 3.6 g/dL (2.2-4.0); Hematocrit 40.8 % (37.0-53.0); Hemoglobin 14.2 g/dL (13.5-17.5); IMMATURE GRAN ABSOLUTE AUTO 0.03 K/mm3 (0.00-0.10); IMMATURE GRAN PERCENT AUTO 1 % (0-1); LYMPHOCYTES ABSOLUTE AUTO 1.67 K/mm3 (0.84-5.20); LYMPHOCYTES PERCENT AUTO 27 % (21-46); MONOCYTES ABSOLUTE AUTO 0.43 K/mm3 (0.16-1.47); MONOCYTES PERCENT AUTO 7 % (4-13); Mean Corpuscular HGB 31.1 pg (26.0-34.0); Mean Corpuscular HGB Conc 34.8 g/dL (31.5-36.5); Mean Corpuscular Volume 90 fL (80-100); Mean Platelet Volume 11.6 fL (9.1-12.4); NEUTROPHILS ABSOLUTE AUTO 3.82 K/mm3 (1.96-9.15); NEUTROPHILS PERCENT AUTO 62 % (41-73); Platelet Count 168 K/mm3 (150-400); Potassium, Blood 3.6 mmol/L (3.5-5.5); RDW Coefficient Variation 13.6 % (11.7-14.2); RDW Standard Deviation 44.6 fL (35.1-46.3); Red Blood Cell Count 4.56 M/mm3 (4.30-5.90); Total Protein, Blood 6.7 g/dL (6.4-8.2); White Blood Cell Count 6.14 K/mm3 (4.00-11.30)
[2022-12-27 13:54] LABS: International Normalized Ratio 1.01; Prothrombin Time Results 10.6 Sec (9.7-11.5)
[2022-12-27 14:01] LABS: Source, Urine Clean Catch
[2022-12-27 14:09] LABS: Appearance, Urine Cloudy (Clear); Bilirubin, Urine Neg (Neg); Blood, Urine 2+ (Neg); Color, Urine Amber (P-Yellow); Glucose Qualitative, Urine Neg (Neg); Ketones, Urine 4+ (Neg); Leukocyte Esterase, Urine Neg (Neg); Nitrite, Urine Pos (Neg); Protein, Urine 4+ (Neg); Specific Gravity, Urine 1.015 (1.003-1.022); Urobilinogen, Urine 1+ (Normal); pH, Urine 6.5 (5.0-8.0)
[2022-12-27 14:36] LABS: Amorphous Mod (0-Heavy); Bacteria Many /hpf; Mucus Light (0-Heavy); Red Blood Cells, Urine 0-2 /hpf (0-2); Squamous Epithelial Cells Few /hpf (Few); Transitional Epithelial Cells Rare /hpf (0-Rare)
[2022-12-27 15:02] LABS: U Amphetamine Screen Not Detected; U Barbituate Screen Not Detected; U Benzodiazapine Screen DETECTED; U Buprenorphine Screen Not Detected; U Cannabinoids Screen Not Detected; U Cocaine Screen Not Detected; U Methadone Screen Not Detected; U Methamphetamine Screen Not Detected; U Opiates Screen Not Detected; U Oxycodone Screen Not Detected; U Phencyclidine Screen Not Detected; U Propoxyphene Screen Not Detected
[2022-12-27 15:05] VITALS: BP 125/76
[2022-12-27] MEDS ORDERED: Protonix40 MG PO (15:06)
[2022-12-27] MEDS ORDERED: ONDA4ODT MM (15:06)
== END 2022-12-27 15:10 | disposition home or self-care (01) ==
LOC: ER 12:26
PROVIDERS: Emergency Medicine
DX: F10.10 Alcohol abuse, uncomplicated (principal); Y90.8 Blood alcohol level of 240 mg/100 ml or more; Z79.899 Other long term (current) drug therapy; F17.210 Nicotine dependence, cigarettes, uncomplicated
CPT/HCPCS: 80053; 81001; 83690; 85025; 85610; 86850; 86900; 86901; 96361; 96374; 96375; 99284-25; C9113; J1630; J7030

== ENCOUNTER 2023-01-08 23:07 | Inpatient (IN) | payer OTHER ==
[~2023-01-08] VITALS: Ht 185.4 cm; Wt 76.9 kg
[~2023-01-08 23:07] MED LIST changes: +Protonix40 MG PO
[2023-01-09 00:25] LABS: BASOPHILS ABSOLUTE AUTO 0.05 K/mm3 (0.00-0.23); BASOPHILS PERCENT AUTO 1 % (0-2); EOSINOPHILS ABSOLUTE AUTO 0.17 K/mm3 (0.00-0.68); EOSINOPHILS PERCENT AUTO 2 % (0-6); Hematocrit 36.4 % (37.0-53.0); Hemoglobin 13.2 g/dL (13.5-17.5); IMMATURE GRAN PERCENT AUTO 1 % (0-1); LYMPHOCYTES ABSOLUTE AUTO 1.03 K/mm3 (0.84-5.20); LYMPHOCYTES PERCENT AUTO 11 % (21-46); MONOCYTES ABSOLUTE AUTO 0.97 K/mm3 (0.16-1.47); MONOCYTES PERCENT AUTO 10 % (4-13); Mean Corpuscular HGB 29.9 pg (26.0-34.0); Mean Corpuscular HGB Conc 36.3 g/dL (31.5-36.5); Mean Corpuscular Volume 82 fL (80-100); Mean Platelet Volume 12.6 fL (9.1-12.4); NEUTROPHILS ABSOLUTE AUTO 7.42 K/mm3 (1.96-9.15); NEUTROPHILS PERCENT AUTO 76 % (41-73); NRBC ABSOLUTE 0.03 K/mm3 (0.00-0.02); NRBC Auto 0.3 /100 WBC (0.0-0.2); Platelet Count 107 K/mm3 (150-400); RDW Standard Deviation 39.1 fL (35.1-46.3); Red Blood Cell Count 4.42 M/mm3 (4.30-5.90); White Blood Cell Count 9.74 K/mm3 (4.00-11.30)
[2023-01-09 00:48] LABS: Ethanol (Alcohol), Blood, Med <3 mg/dL; Magnesium, Blood 1.5 mg/dL (1.6-2.4); Salicylate <1.7 mg/dL (2.8-20.0)
[2023-01-09 00:51] LABS: Alanine Aminotransfer (ALT/SGP 77 U/L (12-78); Albumin, Blood 2.7 g/dL (3.4-5.0); Albumin/Globulin Ratio 0.6 (0.8-1.8); Alk Phos 526 U/L (50-136); Anion Gap 12 mmol/L (6-16); Aspartate Aminotrans (AST/SGOT 263 U/L (12-37); Bilirubin, Total 1.9 mg/dL (0.1-1.0); Blood Urea Nitrogen 10 mg/dL (8-24); Bun/Creatinine Ratio 14.5 (12.0-20.0); CO2, Blood 31 mmol/L (21-32); Calcium, Blood 9.2 mg/dL (8.5-10.1); Chloride, Blood 73 mmol/L (98-108); Creatinine, Blood 0.69 mg/dL (0.60-1.20); Globulin, Blood 4.2 g/dL (2.2-4.0); Glomerular Filtration Rate 115 (60-); Glucose, Blood 167 mg/dL (70-99); Phosphorus, Blood 1.1 mg/dL (2.5-4.9); Potassium, Blood 2.3 mmol/L (3.5-5.5); Sodium, Blood 116 mmol/L (136-145); Total Protein, Blood 6.9 g/dL (6.4-8.2)
[2023-01-09 00:52] LABS: Acetaminophen, Random <2.0 ug/mL (10.0-30.0)
[2023-01-09 00:54] LABS: Base Excess Venous 12.2 mmol/L; Bicarbonate Venous 34.7 mmol/L (24.0-30.0); PCO2 Venous 44.1 mmHg (38-42); pH Blood Venous 7.51 (7.34-7.37)
[2023-01-09 05:28] LABS: Source, Urine Clean Catch
[2023-01-09 05:32] LABS: Appearance, Urine Clear (Clear); Bilirubin, Urine Neg (Neg); Blood, Urine Neg (Neg); Color, Urine Yellow (P-Yellow); Glucose Qualitative, Urine Neg (Neg); Ketones, Urine 1+ (Neg); Leukocyte Esterase, Urine 1+ (Neg); Nitrite, Urine Neg (Neg); Protein, Urine 3+ (Neg); Urobilinogen, Urine 3+ (Normal)
[2023-01-09 05:54] LABS: Albumin/Globulin Ratio 0.9 (0.8-1.8); Bilirubin, Total 1.5 mg/dL (0.1-1.0); Bun/Creatinine Ratio 13.2 (12.0-20.0); Calcium, Blood 8.6 mg/dL (8.5-10.1); Creatinine, Blood 0.61 mg/dL (0.60-1.20); Globulin, Blood 3.5 g/dL (2.2-4.0); Potassium, Blood 2.4 mmol/L (3.5-5.5); Total Protein, Blood 6.5 g/dL (6.4-8.2)
[2023-01-09 05:55] LABS: Bacteria Few /hpf; Red Blood Cells, Urine 0-2 /hpf (0-2); Squamous Epithelial Cells Few /hpf (Few); U Amphetamine Screen Not Detected; U Barbituate Screen Not Detected; U Benzodiazapine Screen Not Detected; U Buprenorphine Screen Not Detected; U Cannabinoids Screen Not Detected; U Cocaine Screen Not Detected; U Methadone Screen Not Detected; U Methamphetamine Screen Not Detected; U Opiates Screen Not Detected; U Oxycodone Screen Not Detected; U Phencyclidine Screen Not Detected; White Blood Cells, Urine 0-2 /hpf (0-5)
[2023-01-09 06:29] LABS: BASOPHILS ABSOLUTE AUTO 0.02 K/mm3 (0.00-0.23); BASOPHILS PERCENT AUTO 0 % (0-2); EOSINOPHILS ABSOLUTE AUTO 0.03 K/mm3 (0.00-0.68); EOSINOPHILS PERCENT AUTO 1 % (0-6); Hematocrit 31.6 % (37.0-53.0); Hemoglobin 11.6 g/dL (13.5-17.5); IMMATURE GRAN ABSOLUTE AUTO 0.05 K/mm3 (0.00-0.10); IMMATURE GRAN PERCENT AUTO 1 % (0-1); LYMPHOCYTES PERCENT AUTO 15 % (21-46); MONOCYTES ABSOLUTE AUTO 0.56 K/mm3 (0.16-1.47); MONOCYTES PERCENT AUTO 11 % (4-13); Mean Corpuscular HGB 30.4 pg (26.0-34.0); Mean Corpuscular HGB Conc 36.7 g/dL (31.5-36.5); Mean Corpuscular Volume 83 fL (80-100); Mean Platelet Volume 12.8 fL (9.1-12.4); NEUTROPHILS ABSOLUTE AUTO 3.88 K/mm3 (1.96-9.15); NEUTROPHILS PERCENT AUTO 73 % (41-73); Platelet Count 53 K/mm3 (150-400); Red Blood Cell Count 3.82 M/mm3 (4.30-5.90); White Blood Cell Count 5.34 K/mm3 (4.00-11.30)
--- NOTE | 2023-01-09 06:37 | NUR ---
TRANSFER NOTE THIS RN RECEIVED REPORT FROM ROLAND JACKSON IN THE ED. PT TRANSFERRED TO PCU AT 0615. PT ALERT, KNOWS HE IS IN THE HOSPITAL BUT BELIEVES HE IS IN [place]. ORIENTED TO DATE AND ADMISSION REASON. CIWA PROTOCOL. STATES THAT LAST DRINK WAS 6 DAYS AGO. COOPERATIVE WITH CARE AT THIS TIME. APPEARS TO HAVE DIFFICULTY FINDING THE RIGHT WORDS WITH CONVERSATION AND BECOMES EASILY FRUSTRATED. PT WAS ABLE TO AMBULATE FROM GURNEY TO BED. BP STABLE. SR ON MONITOR WITH HR 80'S. ON RA WITH SPO2 >92%. AFEBRILE. BED ALARM ON FOR SAFETY. THIS RN SPOKE TO PHARMACIST JONO ROSEN REGARDING POTASSIUM PHOSPHATE AND POTASSIUM CHLORIDE INFUSIONS. JONO POST VERBALIZED TURNING RATE OF K PHOSPHATE TO 50MLS/HR AND K CHLORIDE TO 40MLS/HR. NS INFUSING PER EMAR. THIAMINE INFUSING PER EMAR. BED IN LOWEST POSITION AND CALL LIGHT WITHIN REACH. THIS RN WILL REPORT TO APRIL GARCIA RN.
[2023-01-09 06:47] VITALS: BP 102/81
[2023-01-09 08:13] VITALS: BP 110/83
[2023-01-09 13:39] VITALS: BP 97/76
[2023-01-09 13:52] LABS: Magnesium, Blood 2.2 mg/dL (1.6-2.4)
[2023-01-09 13:53] LABS: Albumin, Blood 2.6 g/dL (3.4-5.0); Anion Gap 5 mmol/L (6-16); Blood Urea Nitrogen 7 mg/dL (8-24); Bun/Creatinine Ratio 12.7 (12.0-20.0); CO2, Blood 33 mmol/L (21-32); Calcium, Blood 8.6 mg/dL (8.5-10.1); Chloride, Blood 87 mmol/L (98-108); Creatinine, Blood 0.55 mg/dL (0.60-1.20); Glomerular Filtration Rate 123 (60-); Glucose, Blood 105 mg/dL (70-99); Phosphorus, Blood 1.9 mg/dL (2.5-4.9); Potassium, Blood 2.6 mmol/L (3.5-5.5); Sodium, Blood 125 mmol/L (136-145)
[2023-01-09 16:38] VITALS: BP 111/58
--- NOTE | 2023-01-09 17:37 | NUR ---
ROUGHLY 0945, THIS RN INTO PT ROOM PT WAS SETTING OF BED ALARM. PT INSTRUCTED TO REMAIN IN BED DUE TO PT UNSTEADY GAIT. PT NOT FOLLOWING INSTRUCTIONS AT THIS TIME. PT FINALLY SAT AT EOB AFTER MULTIPLE CUES. PT CONTINUED STANDING AND SITTING AGAIN AFTER BEING CUED TO SIT. PT ASKED IF HE NEEDED TO VOID AND URINAL OFFERED. PT REFUSED NEEDING TO URINATE. PT STATED "I JUST WANT TO GO THROUGH THAT DOOR AND GO TO THAT RESTRAUNT JUST RIGHT THERE WERE THOSE PEOPLE ARE AT. I WANT TO SIT AND HAVE A NICE MEAL WITH MY FAMILY." THIS RN ATTEMPTED TO REORIENT PT. PT BECAME EASILY AGITATED STATING "YOU ARE NOT LISTENING. I LISTEN TO YOU AND YOU DON'T LISTEN TO ME. THAT IS A CONTROL TACTIC THAT YOU ARE DOING TO ME AND I DO NOT LIKE IT." THIS RN INFORMED PT THAT PT IS BEING LISTENED TO AND THAT THIS RN WAS TRYING TO EXPLAIN THAT THERE WAS NOT A RESTARAUNT BY THE NURSE STATION. AFTER A FEW MINUTES OF TRYING TO REORIENT PT, PT BEGAN STNDING UP. HIP HOP DANCER ENTERED ROOM DUE TO BED ALARM AGAIN, THIS RN STILL IN ROOM. PT REACHED FOR CHAIR IN ROOM. THIS RN ASKED IF PT WANTED TO SIT IN THE CHAIR, NO RESPONSE. WHILE STANDING PT HAD AN INCONTINEN T EPISODE ODF URINE. EVS CONTACTED FOR STAT ROOM MOP. PT CLEANED AND NEW GOWN PROVIDED. PT SATURATED CLOTHES IN WHITE BAG FOR PT. PT EVENTUALLY BACK TO BED AFTER MANY MINUTES OF CONSTANT CUES FROM STAFF. ATIVAN AND LIBRIUM GIVEN PER CIWA PROTOCOL AT THIS TIME. PSYCH MD TO PT'S ROOM BRIEFLY AFTER RECIEVING MEDS. IFORMED FLIGHT ENGINEER INSTRUCTOR OF ELIZ'S. PT CONTINUED GETTING UP WHILE HAVING CONVERSATIONS WITH HALLUCATIONS. BED ALARM CONTINOUSLY GONE OFF FOR ROUGHLY 30 MIN WITH THIS RN CONTINUOUSLY INSTRUCTION PT NOT TO TRY AND GET UP. PT BEGAN CHEWING ON HIS GOWN AND IV LINES. PT INSTRUCTED NOT TO CHEW ON LINES. CHARGE CONTACTED VIA [facility] AND REQUESTED A SITTER FOR PT. PT MEDICATED PER PROTOCOL. AROUND 1500, PT WAS HEADED DOWN TO MRI FOR IMAGING. PT MEDICATED BEFORE TRANSPORT. IMAGING STAFF CONTACTED THIS RN MOMENTS LATER DUE TO PT NOT FOLLOWING INSTRUCTIONS AND ROLLING TO HIS BELLY ON GURNY. FLIGHT ENGINEER INSTRUCTOR INSTRUCTED THIS RN TO ADMINISTER ANOTHER DOSE OF ATIVAN, SEE EMAR FOR ADMINISTRATION. PT EVENTUALLY TO HIS BACK AFTER MANY CUES FROM THIS RN. PT NOTED TO HAVE ANOTHER INCONTINENT EPISODE WHILE ON GURNY. IMAGING STAFF STATED BERYL"PT JUST PULLED OUT HIS PENIS IN THE LINDSAY AND BEGAN PEING." PT GIVEN THE ADDITIONAL DOSE OF ATIVAN AND SLID TO IMAGING TABLE. PT ARRIVED FROM MRI ROUGHLY AT 1615. PT CLEANED AND BEDDING CHANGED. PT THEN BEGAN TO TRY AND STAND AGAIN. PT ASKED WHERE HE WAS TRYING TO GO TO. PT STATED "[facility]." THIS RN ATTEMPTED TO PUT URINAL IN PLACE FOR PT TO VOID. PT VOIDED IN HIS ATTENDS THIS RN WAS TRYING TO GET URINAL IN POSITION. PT AGAIN CLEANED AND BEDDING CHANGED. PT EVENTUALLY LAYED DOWN AFTER MULTIPLE CUES. PT RESTING AT THIS TIME.
[2023-01-09 20:27] VITALS: BP 104/78
--- NOTE | 2023-01-09 20:32 | NUR ---
ASSUMPTION OF CARE THIS RN ASSUMED CARE OF PATIENT AT 1900. PT WAS MEDICATED WITH PO ZYPREXA PRIOR TO SHIFT CHANGE. PT APPEARED TO BE SLEEPING AT TIME OF SHIFT CHANGE. SITTER IN ROOM. SR ON MONITOR WITH HR 80'S. RESPIRATIONS EVEN AND UNLABORED. PT WOKE UP AROUND 2019 AND VERBALIZED NEEDING TO URINATE. PT NOT FOLLOWING COMMANDS AND UNABLE TO USE URINAL WITH STAFF ASSISTANCE. PT GRABBED PENIS AND URINATED ON SELF AND BED. FULL LINEN CHANGE DONE. ATTENDS PLACED ON PATIENT. PT LETHARGIC AFTER CARE DONE. ORIENTED TO SELF ONLY. UNSURE OF LOCATION, SITUATION, AND DATE. BP STABLE. ON RA WITH SPO2 >92%. CIWA 7-8 WHILE BRIEFLY AWAKE; NO MEDICATION GIVEN D/T PT BEING LETHARGIC AND FALLING BACK TO SLEEP QUICKLY. STIMULI REDUCED IN ROOM TO PREVENT AGGITATION. BED IN LOWEST POSITION. BED ALARM ON. SITTER REMAINS AT BEDSIDE. CALL LIGHT WITHIN REACH.
[2023-01-10 00:01] VITALS: BP 105/80
[2023-01-10 00:48] LABS: Calcium, Blood 8.1 mg/dL (8.5-10.1); Creatinine, Blood 0.6 mg/dL (0.60-1.20); Potassium, Blood 2.6 mmol/L (3.5-5.5)
[2023-01-10 04:25] VITALS: BP 94/67
--- NOTE | 2023-01-10 04:30 | NUR ---
SHIFT SUMMARY NO ACUTE CHANGES OVERNIGHT. PT HAS BEEN LETHARGIC MOST OF THIS SHIFT. REPEAT BMP DONE PER MD CALI AFTER POTASSIUM PHOSPHATE WAS COMPLETED FOR AN HOUR. CALL PLACED ABOUT K+ OF 2.6, UNCHANGED FROM PREVIOUS THAT WAS DRAWN. ORDER FOR 40MEQ POTASSIUM CHLORIDE; CURRENTLY INFUSING AT SLOW RATE D/T AGGITATION WITH INFUSION. PT LETHARGIC; NO FURTHER NEED FOR ZYPREXA DURING THIS SHIFT. ORIENTED X1-2. LABILE MOOD. EASILY AGGITATED. INCONTINENT WITH URINE. POOR ABILITY TO FOLLOW COMMANDS. SITTER REMAINS AT BEDSIDE. VITALS STABLE. BED IN LOWEST POSITION. BED ALARM ON. CALL LIGHT WITHIN REACH. THIS RN WILL REPORT TO ONCOMING DAYSHIFT RN.
[2023-01-10 06:20] LABS: Albumin, Blood 2.4 g/dL (3.4-5.0); Anion Gap 4 mmol/L (6-16); Blood Urea Nitrogen 6 mg/dL (8-24); Bun/Creatinine Ratio 9.2 (12.0-20.0); CO2, Blood 32 mmol/L (21-32); Calcium, Blood 8.2 mg/dL (8.5-10.1); Chloride, Blood 99 mmol/L (98-108); Creatinine, Blood 0.65 mg/dL (0.60-1.20); Glomerular Filtration Rate 117 (60-); Glucose, Blood 91 mg/dL (70-99); Magnesium, Blood 2.1 mg/dL (1.6-2.4); Phosphorus, Blood 1.8 mg/dL (2.5-4.9); Sodium, Blood 135 mmol/L (136-145)
[2023-01-10 07:46] VITALS: BP 98/70
--- NOTE | 2023-01-10 12:13 | NUR ---
PT ARRIVED IN PCU VIA BED PT TRASNFERRED VIA SLIDE SHEET, REPORT RECEIVED FROM ISAI JACKSON. PT WEAK AND LETHARGIC ALERT AND ORINETED X3, CANT STATE THE DATE TODAY. AWARE OF THE SITUATION. PT UNABLE TO KEEP HIMSELF AWAKE FOR SOME QUESTIONS. PT HAD A TEMPT OF 100.3 UPON ARRIVAL TYLENOL WAS GIVEN IN THE ER BEFORE ARRIVAL IN THE ROOM, TEMP NOW DOWN TO 98.4. HRR SR 100'S, SBP 140-160'S, AFEBRILE. 2L OF O2 VIA NC WAS PLACED PT WAS DESATTING TO LOW 80'S WHEN SLEEPING. PT YELLS OUT FOR HELP AND GETS IRRITATED UPON WAKING UP PT REDIRECTABLE MOST OF THE TIME. SISTER OLGA CALLED AND WAS GIVEN UPDATE REGARDING PT'S STATUS. PT HAS REDNESS AND SWELLING ON LLE D/T CELLULITIS AREA MARKED WITH PEN MARKER. PT ALSO HAS SOME BRUISING, BLISTER ON LEFT BUTTOCK AND REDNESS IN COCCYX. PT WAS GIVEN A COMPLETED BED BATH UPON ARRIVAL. VANCO AND VIBRAMYCIN WAS GIVEN, LR NOW RUNNING AT 100MLS/HR. PT RESTING IN BED AT THIS TIME, CALL LIGHTS IN REACH, BED ALARM ON FOR SAFETY, WILL CONTINUE TO MONITOR
[2023-01-10 16:01] VITALS: BP 99/80
--- NOTE | 2023-01-10 18:32 | NUR ---
PT SUMMARY: PT TRANSITIONED TO MEDICAL STATUS NO TELE. PT HAS BEEN MORE COHERENT AND ALERT FOR THE SHIFT, NO CLINICAL SITTER SINCE LUNCH TIME, PT HAS BEEN AMBULATING TO THE BATHROOM FOR TOILETING SBA, HAD A SHOWER THIS SHIFT. PT HAS BEEN COOPERATIVE AND BEING APPROPRIATE. PT COULDNT REMEMBER MUCH OF WHAT HAPPENED SINCE PT GOT ADMITTED. PT WAS GIVEN UPDATE OF THE PLAN AND ENCOURAGE TO STOP DRINKING. PT STATED "SONY BEEN SOBER FOR 32 DAYS ALREADY, THAT THURSDAY NIGHT I HAD SOMETHING..A PILL" PT ASKED IF HE TESTED FOR ANYTHING ON HIS UTOX OR IF HE'S POSITIVE FOR FENTANYL. THIS RN ASKED IF HE TOOK FENTANYL PT DIDNT RESPOND. PT HAS BEEN EATING AND DRINKING ADEQUATELY. POTASSIUM WAS REPLACED THIS MORNING. PT ASKED TO BE DISCHARGE TODAY, WAS ENCOURAGED TO STAY UNTIL PROVIDER ALLOWS HIM TO, PT AGREED. BED ALARM ON FOR SAFETY, PT REMAINS IMPULSIVE AT TIMES. NO OTHER ISSUES ENCOUNTERED FOR THE SHIFT. PT IN BED EATING DINNER. CALL LIGHTS IN REACH WILL REPORT TO ONCOMING SHIFT
[2023-01-10 20:00] VITALS: BP 102/70
[2023-01-11 04:30] VITALS: BP 107/89
[2023-01-11 04:44] LABS: Hematocrit 28.2 % (37.0-53.0); Hemoglobin 10.1 g/dL (13.5-17.5); Mean Corpuscular HGB 30.5 pg (26.0-34.0); Mean Corpuscular HGB Conc 35.8 g/dL (31.5-36.5); Mean Corpuscular Volume 85 fL (80-100); RDW Coefficient Variation 14.5 % (11.7-14.2); RDW Standard Deviation 44.9 fL (35.1-46.3); Red Blood Cell Count 3.31 M/mm3 (4.30-5.90); White Blood Cell Count 5.01 K/mm3 (4.00-11.30)
[2023-01-11 04:45] LABS: Mean Platelet Volume 13.3 fL (9.1-12.4); Platelet Count 108 K/mm3 (150-400)
[2023-01-11 04:47] LABS: Albumin, Blood 2.3 g/dL (3.4-5.0); Anion Gap 8 mmol/L (6-16); Blood Urea Nitrogen 7 mg/dL (8-24); Bun/Creatinine Ratio 10.5 (12.0-20.0); CO2, Blood 27 mmol/L (21-32); Calcium, Blood 8.3 mg/dL (8.5-10.1); Chloride, Blood 100 mmol/L (98-108); Creatinine, Blood 0.67 mg/dL (0.60-1.20); Glomerular Filtration Rate 116 (60-); Glucose, Blood 129 mg/dL (70-99); Magnesium, Blood 1.7 mg/dL (1.6-2.4); Phosphorus, Blood 2.2 mg/dL (2.5-4.9); Potassium, Blood 2.9 mmol/L (3.5-5.5); Sodium, Blood 135 mmol/L (136-145)
--- NOTE | 2023-01-11 06:17 | NUR ---
SHIFT SUMMARY THIS RN ASSUMED CARE AT 1915. PT A&O X4, INTERACTING AND RESPONDING TO QUESTIONS APPROPRIATELY. PT FOLLOWING COMMANDS. PT EXPRESSES HE IS "FRUSTRATED BECAUSE I WANT TO GO HOME" AND THAT HE IS TIRED OF BEING HERE AND THOUGHT HE WAS WELL ENOUGH TO GO HOME. PT EXPRESSED STRONG DESIRE TO GO HOME TODAY. VSS T/O SHIFT, PT HAD UNEVENTFUL NIGHT; HE SLEPT MOST OF THE SHIFT, UP ON AND OFF TO EAT AND USE THE RESTROOM. PT DENIES PAIN, CP/PRESSURE, SOB, N/V, DIZZINESS OR LIGHTHEADNESS. PT TOLERATING PO INTAKE WELL AND HAVING GOOD OUTPUT. PT HAD ONE BM THIS SHIFT; PT REPORTS IT WAS FORMED, BROWN AND LARGE. PT WOKE UP THIS AM AROUND 0430 AND TOOK A SHOWER, HAD A SMALL SNACK AND WENT BACK TO BED. PT ABLE TO VERBALIZE NEEDS BUT IS NOT USING CALL LIGHT CONSISTENTLY, BED ALARM ON FOR SAFETY. WILL UPDATE ONCOMING RN.
[2023-01-11 07:15] VITALS: BP 102/78
--- NOTE | 2023-01-11 13:31 | NUR ---
PT WAS DISCHARGE TO HOME WITH DISCHARGE ORDERS. PT'S FRIEND CAME IN AND PROVIDED TRANSPORTATION FOR THE PT. DISCLOSED DISCHARGE INFORMATION WITH THE PT, PT VERBALIZED UNDERSTANDING. PT HAS BEEN GOING TO THE BATHROOM INDEPENDENTLY. POTASSIUM WAS REPLACED THIS MORNING. PT DENIES ANY PAIN AND DISCOMFORT. VITALS HAS BEEN STABLE. PT ACCOMPANIED VIA WHEELCHAIR FOR TRANSPORT. ALL BELONGINGS SENT WITH THE PT.
== END 2023-01-11 12:45 | disposition home or self-care (01) | DRG 641 ==
LOC: ER 23:07 → PCU 01-09 03:01
PROVIDERS: Emergency Medicine; Internal Medicine; Student in an Organized Health Care Education/Training Program; ADMIT Internal Medicine
DX: E87.1 Hypo-osmolality and hyponatremia (principal); F10.251 Alcohol dependence with alcohol-induced psychotic disorder with hallucinations; E87.6 Hypokalemia; E83.39 Other disorders of phosphorus metabolism; K21.9 Gastro-esophageal reflux disease without esophagitis; K70.10 Alcoholic hepatitis without ascites; F17.210 Nicotine dependence, cigarettes, uncomplicated; E86.0 Dehydration; G31.2 Degeneration of nervous system due to alcohol; E83.42 Hypomagnesemia; E88.09 Other disorders of plasma-protein metabolism, not elsewhere classified; D64.9 Anemia, unspecified; Z79.899 Other long term (current) drug therapy; Z87.19 Personal history of other diseases of the digestive system
CPT/HCPCS: 36415; 70553; 80048; 80053; 80069; 81001; 82140; 82803; 82947; 83605; 83735; 84100; 85025; 85027; 86592; 93005; 93010; 96365; 96366; 96367; 96368; 99285-25; A9270; A9579; G0480; J1650; J2060; J3411; J3475; J3480; J7030; J7040; J7050; J7060; P9047

== ENCOUNTER → 2023-01-14 | Outpatient (CLI) | payer OTHER ==
[2023-01-14 16:04] LABS: BASOPHILS ABSOLUTE AUTO 0.03 K/mm3 (0.00-0.23); BASOPHILS PERCENT AUTO 1 % (0-2); EOSINOPHILS ABSOLUTE AUTO 0.03 K/mm3 (0.00-0.68); EOSINOPHILS PERCENT AUTO 1 % (0-6); Hematocrit 30.2 % (37.0-53.0); Hemoglobin 10.3 g/dL (13.5-17.5); IMMATURE GRAN ABSOLUTE AUTO 0.07 K/mm3 (0.00-0.10); IMMATURE GRAN PERCENT AUTO 1 % (0-1); LYMPHOCYTES ABSOLUTE AUTO 0.84 K/mm3 (0.84-5.20); LYMPHOCYTES PERCENT AUTO 15 % (21-46); MONOCYTES ABSOLUTE AUTO 0.86 K/mm3 (0.16-1.47); MONOCYTES PERCENT AUTO 16 % (4-13); Mean Corpuscular HGB 30.4 pg (26.0-34.0); Mean Corpuscular HGB Conc 34.1 g/dL (31.5-36.5); Mean Corpuscular Volume 89 fL (80-100); Mean Platelet Volume 12.3 fL (9.1-12.4); NEUTROPHILS ABSOLUTE AUTO 3.68 K/mm3 (1.96-9.15); NEUTROPHILS PERCENT AUTO 67 % (41-73); Platelet Count 146 K/mm3 (150-400); RDW Coefficient Variation 17.2 % (11.7-14.2); RDW Standard Deviation 54.6 fL (35.1-46.3); Red Blood Cell Count 3.39 M/mm3 (4.30-5.90); White Blood Cell Count 5.51 K/mm3 (4.00-11.30)
[2023-01-14 16:14] LABS: Albumin, Blood 2.5 g/dL (3.4-5.0); Albumin/Globulin Ratio 0.6 (0.8-1.8); Bun/Creatinine Ratio 14.2 (12.0-20.0); Calcium, Blood 8.8 mg/dL (8.5-10.1); Creatinine, Blood 0.56 mg/dL (0.60-1.20); Globulin, Blood 4.2 g/dL (2.2-4.0); Potassium, Blood 3.6 mmol/L (3.5-5.5); Total Protein, Blood 6.7 g/dL (6.4-8.2)
== END | disposition home or self-care (01) ==
LOC: LAB 14:55 → LAB SHORT 14:55
PROVIDERS: Family Medicine
DX: E87.6 Hypokalemia (principal); D64.9 Anemia, unspecified
CPT/HCPCS: 80053; 85025

== ENCOUNTER → 2023-01-19 | Outpatient (CLI) | payer OTHER ==
[2023-01-19 19:12] LABS: Albumin, Blood 2.3 g/dL (3.4-5.0); Albumin/Globulin Ratio 0.5 (0.8-1.8); Bilirubin, Total 2.8 mg/dL (0.1-1.0); Bun/Creatinine Ratio 14.8 (12.0-20.0); Calcium, Blood 8.6 mg/dL (8.5-10.1); Creatinine, Blood 0.74 mg/dL (0.60-1.20); Globulin, Blood 4.3 g/dL (2.2-4.0); Potassium, Blood 4.5 mmol/L (3.5-5.5); Total Protein, Blood 6.6 g/dL (6.4-8.2)
== END | disposition home or self-care (01) ==
LOC: LAB 13:40 → LAB SHORT 13:40
PROVIDERS: Family Medicine
DX: E87.1 Hypo-osmolality and hyponatremia (principal)
CPT/HCPCS: 80053

== ENCOUNTER 2023-06-18 07:58 | Day surgery (SDC) | payer OTHER | END 2023-06-18 23:07 | disposition home or self-care (01) | LOC: US 07:58 | DX: K70.31 Alcoholic cirrhosis of liver with ascites (principal) | CPT/HCPCS: 49083 ==

== ENCOUNTER 2023-06-25 08:46 | Day surgery (SDC) | payer OTHER | END 2023-06-25 22:59 | disposition home or self-care (01) | LOC: US 08:46 | DX: K70.31 Alcoholic cirrhosis of liver with ascites (principal) | CPT/HCPCS: 49083 ==

== ENCOUNTER 2023-07-02 08:48 | Day surgery (SDC) | payer OTHER | END 2023-07-02 23:15 | disposition home or self-care (01) | LOC: US 08:48 | PROC: 0W9G3ZZ Drainage of Peritoneal Cavity, Percutaneous Approach (ICD-10-PCS; principal; 2023-07-02) | DX: K70.31 Alcoholic cirrhosis of liver with ascites (principal) | CPT/HCPCS: 49083 ==

== ENCOUNTER → 2023-07-29 | Outpatient (CLI) | payer OTHER ==
[2023-07-29 17:03] LABS: Appearance, Urine Cloudy (Clear); Bilirubin, Urine Neg (Neg); Blood, Urine Neg (Neg); Glucose Qualitative, Urine Neg (Neg); Ketones, Urine 1+ (Neg); Leukocyte Esterase, Urine 1+ (Neg); Nitrite, Urine Neg (Neg); Protein, Urine 2+ (Neg); Specific Gravity, Urine 1.025 (1.003-1.022); Urobilinogen, Urine 1+ (Normal)
[2023-07-29 17:44] LABS: Protein, Urine Random 51.3 mg/dL (0.0-11.9); Protein/Creat Ratio, Ur Random 0.3
[2023-07-29 17:46] LABS: Microalb/Creat Ratio UR, Rand 106.952 mg/g (0.000-30.000)
[2023-07-29 18:00] LABS: Color, Urine Yellow (P-Yellow)
[2023-07-29 18:02] LABS: Amorphous Heavy (0-Heavy); Red Blood Cells, Urine 0-2 /hpf (0-2); White Blood Cells, Urine 0-2 /hpf (0-5)
[2023-07-29 18:03] LABS: Bacteria Few /hpf; Squamous Epithelial Cells Not Seen /hpf (Few)
== END ==
LOC: LAB 10:45 → LAB SHORT 10:45
PROVIDERS: Hospitalist
DX: K70.31 Alcoholic cirrhosis of liver with ascites (principal); R80.9 Proteinuria, unspecified
CPT/HCPCS: 81001; 82043; 82570; 84156; 87077; 87086; 87186

== ENCOUNTER 2023-08-10 08:50 | Day surgery (SDC) | payer OTHER | END 2023-08-11 22:37 | disposition home or self-care (01) | LOC: US 08:50 | DX: K70.31 Alcoholic cirrhosis of liver with ascites (principal) | CPT/HCPCS: 36415; 49083; 85610; 85730 ==

== ENCOUNTER 2023-08-21 08:43 | Day surgery (SDC) | payer OTHER | END 2023-08-21 23:27 | disposition home or self-care (01) | LOC: US 08:43 | DX: K70.31 Alcoholic cirrhosis of liver with ascites (principal) | CPT/HCPCS: 49083 ==

== ENCOUNTER 2023-08-26 08:50 | Day surgery (SDC) | payer OTHER | END 2023-08-26 23:13 | disposition home or self-care (01) | LOC: US 08:50 | DX: K70.31 Alcoholic cirrhosis of liver with ascites (principal) | CPT/HCPCS: 36415; 49083; 85610; 85730 ==

== ENCOUNTER 2023-08-31 08:55 | Day surgery (SDC) | payer OTHER | END 2023-08-31 08:56 | disposition home or self-care (01) | LOC: US 08:55 | DX: K70.31 Alcoholic cirrhosis of liver with ascites (principal) | CPT/HCPCS: 49083 ==

== ENCOUNTER 2023-09-04 10:50 | Day surgery (SDC) | payer OTHER | END 2023-09-04 22:43 | disposition home or self-care (01) | LOC: US 10:50 | DX: K70.31 Alcoholic cirrhosis of liver with ascites (principal) | CPT/HCPCS: 49083 ==

== ENCOUNTER 2023-09-09 08:07 | Day surgery (SDC) | payer OTHER ==
[2023-09-09] MEDS ORDERED: Albumin (Human) 25gm/100ml 100 ML IV ONE (09:45)
--- NOTE | 2023-09-09 10:11 | NUR ---
UPDATE IV PLACED. ALBUMIN GTT STARTED PER EMAR. PT MOSHE WELL. NO NEEDS AT THIS TIME.
[2023-09-09 10:35] VITALS: BP 118/85
--- NOTE | 2023-09-09 10:37 | NUR ---
UPDATE ALBUMIN GTT FINISHED. VSS PRIORT TO DISCHARGE. PT WALKED TO LOBBY WITH BELONGINGS.
== END 2023-09-10 22:48 | disposition home or self-care (01) ==
LOC: US 08:07
DX: K70.31 Alcoholic cirrhosis of liver with ascites (principal)
CPT/HCPCS: 49083; P9047

== ENCOUNTER 2023-09-14 08:32 | Day surgery (SDC) | payer OTHER | END 2023-09-15 01:07 | disposition home or self-care (01) | LOC: US 08:32 | DX: K70.31 Alcoholic cirrhosis of liver with ascites (principal) | CPT/HCPCS: 76705 ==

== ENCOUNTER 2023-09-18 08:45 | Day surgery (SDC) | payer OTHER | END 2023-09-18 23:03 | disposition home or self-care (01) | LOC: US 08:45 | DX: K70.31 Alcoholic cirrhosis of liver with ascites (principal) | CPT/HCPCS: 76705 ==

== ENCOUNTER 2024-06-14 07:10 | Day surgery (SDC) | payer OTHER ==
[~2024-06-14] VITALS: Ht 182.9 cm; Wt 80.1 kg
[2024-06-14] VITALS (8 sets, daily range): BP systolic 104–119; BP diastolic 77–97
[~2024-06-14 07:10] MED LIST changes: +GABA300 PO; +VITAMIN D5000 UNIT PO
[2024-06-14] MEDS ORDERED: CeFAZolin Sodium 2,000 MG in NS 100 ML IV SCH (07:25)
[2024-06-14] MEDS ORDERED: Lactated Ringer's 1,000 ML IV SCH (07:25)
[2024-06-14] MEDS ORDERED: Rocuronium Bromide 10 MG/ML 5ML Injection IV ONE (08:00)
[2024-06-14] MEDS ORDERED: propofoL 20 ML IV ONE (08:00)
[2024-06-14] MEDS ORDERED: Midazolam HCl 1MG / ML 2ML Vial ONE (08:00)
--- NOTE | 2024-06-14 08:02 | NUR ---
Ambulatory in Day Surgery WITH STEADY GAIT INDEPENDENTLY. History, Chart, Medications and Allergies reviewed before start of procedure. Patient States Post-Procedure ride home has been arranged WITH PT'S MOTHER. Pre-Op teaching done. Pt verbalizes understanding. BELONGINGS PLACED UNDER GURN INCLUDING GLASSES AND PHONE.
[2024-06-14] MEDS ORDERED: Bupivacaine 0.5% HCl 5 MG/ML 30MLVIAL ONE (08:30)
[2024-06-14] MEDS ORDERED: Dexamethasone Sod Phos 10 MG/ML 1ML VIAL ONE (08:48)
[2024-06-14] MEDS ORDERED: Ketorolac Tromethamine 30mg Vial ONE (08:48)
[2024-06-14] MEDS ORDERED: Ondansetron HCl 2 MG / ML 2ML Vial ONE (08:48)
[2024-06-14] MEDS ORDERED: Glycopyrrolate 0.2 MG/ML 5ML VIAL ONE (09:07)
[2024-06-14] MEDS ORDERED: Neostigmine Methylsulfate 5MG/5ML SYR ONE (09:07)
[2024-06-14] MEDS ORDERED: Triple Antibiotic Ointment 30 gm ONE (10:09)
[2024-06-14] MEDS ORDERED: HYDROcodone 5-APAP 325 TAB PO PRN (10:40)
--- NOTE | 2024-06-14 11:35 | NUR ---
Patient up to Ambulate independently. Gait steady. Discharge instructions reviewed with patient. Patient verbalizes understanding. Copy given to patient to take home. Discharged via wheelchair to private car for ride home.
== END 2024-06-14 11:34 | disposition home or self-care (01) ==
LOC: ORSCMMR 07:10 → ORD 07:30 → ORSCMMR 08:30
PROVIDERS: Surgery
PROC: 0JB00ZX Excision of Scalp Subcutaneous Tissue and Fascia, Open Approach, Diagnostic (ICD-10-PCS; principal; 2024-06-14 08:30)
DX: R22.0 Localized swelling, mass and lump, head (principal); D23.4 Other benign neoplasm of skin of scalp and neck; F17.210 Nicotine dependence, cigarettes, uncomplicated; K74.60 Unspecified cirrhosis of liver
CPT/HCPCS: 88304; A9270; J0690; J1100; J1885; J2250; J2405; J2704; J2710; J7120